=== PATIENT | male | born 1945 | race Caucasian/White ===

== ENCOUNTER 2019-12-11 03:04 | Emergency (ER) | payer MEDICARE, OTHER ==
[2019-12-11 03:17] VITALS: RESP 18; TEMP 97.3
--- NOTE | 2019-12-11 03:48 | ED ---
Extremity Problem HPI - General Chief complaint: Extremity Problem,Nontraumatic Stated complaint: Groin pain Time Seen by Provider: 12/11/19 03:19 Source: patient Mode of arrival: ambulatory Limitations: no limitations - History of Present Illness Initial comments: Reagan is a 74-year-old male with a history of prostate cancer as well as melanoma. He presents the ER today for evaluation of a right-sided anterior hip pain. Patient reports he noticed the pain a little over a week ago, pain is in the anterior groin radiating to the hip in the area of the ASIS. Patient reports the pain occurs without provocation is not any worse with ambulating or lifting. He has not noticed any bulging or signs of hernia. He hasn't had any dysuria or trouble urinating. Patient states that he does have a history of lumbar pain and has had surgeries in the past so he did see his chiropractor about this pain on with minimal improvement after an adjustment. He returned on Friday with chiropractor advised him that if the pain wasn't improving here further workup. Patient states that he was only able to get about 3 hours of sleep during the night on night and tonight couldn't sleep at all due to the pain which prompted his to bring in the ER for evaluation. Patient denies any recent fevers chills, nausea, vomiting, night sweats or weight loss. He denies any injuries or falls. Denies any radiation of the pain down the leg or signs of sciatica. Denies any change in bowel or bladder habits. - Related Data Home Medications Medication Instructions Recorded Confirmed SUMAtriptan SUCCINATE [Imitrex] 50 mg PO DAILY PRN 09/15/15 12/11/19 Naproxen Sodium [Aleve] 440 mg PO BID 11/29/15 12/11/19 Warfarin Sodium [Coumadin] 5 mg PO MOWEFR 11/29/15 12/11/19 Warfarin [Coumadin] 2.5 mg PO SUTUTHSA 11/29/15 12/11/19 Metoprolol Succinate (ER) [Toprol 25 mg PO BID 10/03/17 12/11/19 Xl] Atorvastatin [Lipitor] 20 mg PO HS 12/11/19 12/11/19 Previous Rx's Medication Instructions Recorded Methocarbamol [Robaxin-750] 750 mg PO TID #30 tablet 12/11/19 Allergies Allergy/AdvReac Type Severity Reaction Status Date / Time No Known Allergies Allergy Verified 12/11/19 03:11 Review of Systems ROS Statement: Those systems with pertinent positive or pertinent negative responses have been documented in the HPI. ROS Other: All systems not noted in ROS Statement are negative. Past Medical History Past Medical History: Atrial Fibrillation, Cancer, Hyperlipidemia, Osteoarthritis (OA), Prostate Disorder Additional Past Medical History / Comment(s): migraines, irregular heartrate, hx prostate cancer, hx melanoma, History of Any Multi-Drug Resistant Organisms: None Reported Past Surgical History: Adenoidectomy, Cardiac Valve Replacement, Prostate Surgery Additional Past Surgical History / Comment(s): aortic valve replacement, precancer lesions removed from hands and forehead, melanoma removed from arm, cardioversion Past Anesthesia/Blood Transfusion Reactions: No Reported Reaction Past Psychological History: No Psychological Hx Reported Smoking Status: Former smoker Past Alcohol Use History: Occasional Past Drug Use History: None Reported - Past Family History Father Family Medical History: Cancer Additional Family Medical History / Comment(s): throat Mother Additional Family Medical History / Comment(s): Mother of Heart Failure at 80 Brother(s) Family Medical History: Cancer Additional Family Medical History / Comment(s): stomach General Exam - General Exam Comments Initial Comments: Physical Exam GENERAL: Patient is well-developed and well-nourished. Patient is nontoxic and well- hydrated and is in no distress. HENT: Normocephalic, Atraumatic. EYES: PERRL, EOMI PULMONARY: Unlabored respirations CARDIOVASCULAR: RRR ABDOMEN: Soft and nontender with normal bowel sounds. No palpable hernia SKIN: Skin is clear with no lesions or rashes and otherwise unremarkable. : External genitalia, no testicular swelling palpable inguinal hernias No inguinal lymphadenopathy NEUROLOGIC: Patient is alert and oriented x3. Moving all extremities spontaneously MUSCULOSKELETAL: Normal extremities with adequate strength and full range of motion. No lower extremity swelling or edema. No calf tenderness. PSYCHIATRIC: Normal psychiatric evaluation. Limitations: no limitations Course Vital Signs 12/11/19 12/11/19 03:13 06:16 Temperature 97.3 F L Pulse Rate 70 60 Respiratory 18 18 Rate Blood Pressure 201/114 164/86 O2 Sat by Pulse 95 99 Oximetry Medical Decision Making - Medical Decision Making Patient was seen and evaluated history is obtained from patient given the patient's cancer history computed tomography scan will be obtained to evaluate for any possible metastatic disease Labs and x-ray were unremarkable Results were discussed patient at bedside who expresses relief at this time the comfortable with plan for discharge home, symptomatic management, follow-up with PCP. Patient has persistent pain he should follow with orthopedics. - Lab Data Result diagrams: 12/11/19 04:20 12/11/19 04:20 Lab Results 12/11/19 12/11/19 12/11/19 Range/Units 04:20 04:20 05:41 WBC 7.3 (3.8-10.6) k/uL RBC 4.79 (4.30-5.90) m/uL Hgb 14.1 (13.0-17.5) gm/dL Hct 43.7 (39.0-53.0) % MCV 91.3 (80.0-100.0) fL MCH 29.5 (25.0-35.0) pg MCHC 32.3 (31.0-37.0) g/dL RDW 14.0 (11.5-15.5) % Plt Count 153 (150-450) k/uL Neutrophils % 71 % Lymphocytes % 18 % Monocytes % 5 % Eosinophils % 3 % Basophils % 1 % Neutrophils # 5.2 (1.3-7.7) k/uL Lymphocytes # 1.3 (1.0-4.8) k/uL Monocytes # 0.4 (0-1.0) k/uL Eosinophils # 0.2 (0-0.7) k/uL Basophils # 0.0 (0-0.2) k/uL Sodium 139 (137-145) mmol/L Potassium 4.2 (3.5-5.1) mmol/L Chloride 108 H (98-107) mmol/L Carbon Dioxide 24 (22-30) mmol/L Anion Gap 7 mmol/L BUN 13 (9-20) mg/dL Creatinine 0.90 (0.66-1.25) mg/dL Est GFR (CKD-EPI)AfAm >90 (>60 ml/min/1.73 sqM) Est GFR (CKD-EPI)NonAf 85 (>60 ml/min/1.73 sqM) Glucose 111 H (74-99) mg/dL Calcium 9.4 (8.4-10.2) mg/dL Total Bilirubin 0.8 (0.2-1.3) mg/dL AST 22 (17-59) U/L ALT 20 (4-49) U/L Alkaline Phosphatase 43 (38-126) U/L Creatine Kinase 90 (55-170) U/L Total Protein 7.1 (6.3-8.2) g/dL Albumin 4.5 (3.5-5.0) g/dL Urine Color Yellow Urine Appearance Clear (Clear) Urine pH 6.5 (5.0-8.0) Ur Specific [place] 1.033 (1.001-1.035) Urine Protein Trace H (Negative) Urine Glucose (UA) Negative (Negative) Urine Ketones Negative (Negative) Urine Blood Negative (Negative) Urine Nitrite Negative (Negative) Urine Bilirubin Negative (Negative) Urine Urobilinogen <2.0 (<2.0) mg/dL Ur Leukocyte Esterase Negative (Negative) Disposition Clinical Impression: Musculoskeletal leg pain Disposition: HOME SELF-CARE Condition: Stable Instructions (If sedation given, give patient instructions): Leg Pain (ED) Prescriptions: Methocarbamol [Robaxin-750] 750 mg PO TID #30 tablet Is patient prescribed a controlled substance at d/c from ED?: No Referrals: Kim Luna III, MD [Primary Care Provider] - 1-2 days
[2019-12-11] MEDS ORDERED: SODIUM CHLORIDE 0.9% 1,000 ML IV STA (03:56)
[2019-12-11] MEDS ORDERED: MORPHINE SULFATE 4 MG/ML SYRINGE IV STA (03:56)
[2019-12-11] MEDS ORDERED: ONDANSETRON 4 MG/2 ML VIAL IVP STA (03:56)
[2019-12-11 04:33] LABS: Basophils % (A) 1 %; Eosinophils # (A) 0.2 k/uL (0-0.7); Eosinophils % (A) 3 %; HCT 43.7 % (39.0-53.0); HGB 14.1 gm/dL (13.0-17.5); Lymphocytes # (A) 1.3 k/uL (1.0-4.8); Lymphocytes % (A) 18 %; MCH 29.5 pg (25.0-35.0); MCHC 32.3 g/dL (31.0-37.0); MCV 91.3 fL (80.0-100.0); Mean Platelet Volume 7.7; Monocytes # (A) 0.4 k/uL (0-1.0); Monocytes % (A) 5 %; Neutrophils # (A) 5.2 k/uL (1.3-7.7); Neutrophils % (A) 71 %; Platelet Count 153 k/uL (150-450); RBC 4.79 m/uL (4.30-5.90); WBC 7.3 k/uL (3.8-10.6)
[2019-12-11 04:47] LABS: ALT 20 U/L (4-49); AST 22 U/L (17-59); African American GFR (CKD) >90 (>60 ml/min/1.73 sqM); Albumin 4.5 g/dL (3.5-5.0); Alkaline Phosphatase 43 U/L (38-126); Anion Gap 7 mmol/L; Blood Urea Nitrogen 13 mg/dL (9-20); Calcium 9.4 mg/dL (8.4-10.2); Carbon Dioxide 24 mmol/L (22-30); Chloride 108 mmol/L (98-107); Creatine Kinase 90 U/L (55-170); Glucose 111 mg/dL (74-99); Non-African American GFR(CKD) 85 (>60 ml/min/1.73 sqM); Potassium 4.2 mmol/L (3.5-5.1); Sodium 139 mmol/L (137-145); Total Bilirubin 0.8 mg/dL (0.2-1.3); Total Protein 7.1 g/dL (6.3-8.2)
[2019-12-11] MEDS ORDERED: MORPHINE SULFATE 4 MG/ML SYRINGE IVP STA (05:34)
--- NOTE | 2019-12-11 05:35 | CT ---
EXAMINATION TYPE: CT abdomen pelvis w con DATE OF EXAM: 12/11/2019 COMPARISON: None HISTORY: pain CT DLP: 1408.4 mGycm Automated exposure control for dose reduction was used. CONTRAST: Performed with IV Contrast, patient injected with 100 mL of Isovue 300. Multiple axial sections were obtained from the diaphragm to the floor the pelvis with intravenous con trast. The lung bases are clear. There is no pleural effusion. There is no pericardial effusion. The liver s pleen pancreas gallbladder appear normal. Bile ducts are not dilated. There is no adrenal mass. Kidne ys show satisfactory contrast opacification. There is no hydronephrosis. There is 2 cm cortical cyst anterior left kidney. Ureters are not dilated. There is no retroperitoneal adenopathy. Appendix is po sterior and appears normal. Bladder distends smoothly. There is no inguinal hernia. There is some diverticula in the mid sigmoid colon. I see no definite diverticulitis. There are surgi waleska clips in the pelvis bilaterally. There is no inguinal hernia. There is no evidence of a pelvic ma ss. There is no mesenteric edema. There is no ascites or free air. There is no evidence of bowel obstruct ion. There is multilevel lower lumbar laminectomy defect. Lumbar vertebra have normal alignment. Ther e is some disc space narrowing. There is no compression fracture. I see no focal bone destruction. Jack ny pelvis appears intact. IMPRESSION: Pelvic surgery. Lumbar spine surgery. Normal appendix. Sigmoid diverticulosis without sign of diverticulitis.
[2019-12-11] MEDS ORDERED: ACET/COD 300 MG/30 MG STARTER PACK 6 TAB BTL PO STA (05:40)
[2019-12-11 06:01] LABS: Appearance,Urine Clear (Clear); Bilirubin,Urine Negative (Negative); Blood,Urine Negative (Negative); Color,Urine Yellow; Glucose,Urine (UA) Negative (Negative); Ketones,Urine Negative (Negative); Leukocyte Esterase,Urine Negative (Negative); Nitrite,Urine Negative (Negative); PH, Urine 6.5 (5.0-8.0); Protein,Urine Trace (Negative); Specific Gravity,Urine 1.033 (1.001-1.035); Urobilinogen,Urine <2.0 mg/dL (<2.0)
[2019-12-11 06:18] VITALS: BP 164/86; PULSE 60
== END 2019-12-11 06:18 | disposition home or self-care (01) ==
LOC: EC 03:04
DX: M25.551 Pain in right hip (principal); E78.5 Hyperlipidemia, unspecified; I48.91 Unspecified atrial fibrillation; M19.90 Unspecified osteoarthritis, unspecified site; Z79.1 Long term (current) use of non-steroidal anti-inflammatories (NSAID); Z79.01 Long term (current) use of anticoagulants; Z79.899 Other long term (current) drug therapy; Z85.46 Personal history of malignant neoplasm of prostate; Z85.820 Personal history of malignant melanoma of skin; Z95.2 Presence of prosthetic heart valve; Z98.890 Other specified postprocedural states; Z87.891 Personal history of nicotine dependence
CPT/HCPCS: 36415; 80053; 82550; 85025; 81003; 74177; 99284; 96374; 96375; 96376; 96361 ×2; J2270; J2405; Q9967

== ENCOUNTER 2020-02-22 09:40 | Emergency (ER) | payer MEDICARE, OTHER ==
[2020-02-22 09:52] VITALS: BP 127/79; PULSE 70; RESP 18; TEMP 98
[2020-02-22 10:41] LABS: Basophils % (A) 1 %; Eosinophils # (A) 0.2 k/uL (0-0.7); Eosinophils % (A) 3 %; HCT 30.6 % (39.0-53.0); HGB 10.1 gm/dL (13.0-17.5); Lymphocytes % (A) 16 %; MCH 30.5 pg (25.0-35.0); MCHC 33.1 g/dL (31.0-37.0); MCV 92.1 fL (80.0-100.0); Mean Platelet Volume 7.5; Monocytes # (A) 0.4 k/uL (0-1.0); Monocytes % (A) 6 %; Neutrophils # (A) 4.5 k/uL (1.3-7.7); Neutrophils % (A) 73 %; Platelet Count 226 k/uL (150-450); RBC 3.32 m/uL (4.30-5.90); WBC 6.2 k/uL (3.8-10.6)
[2020-02-22 10:44] LABS: INR 1.3 (<1.2); Prothrombin Time 13.4 sec (9.0-12.0)
[2020-02-22 10:55] LABS: ALT 15 U/L (4-49); AST 23 U/L (17-59); African American GFR (CKD) >90 (>60 ml/min/1.73 sqM); Albumin 4.2 g/dL (3.5-5.0); Alkaline Phosphatase 42 U/L (38-126); Anion Gap 6 mmol/L; Blood Urea Nitrogen 16 mg/dL (9-20); Calcium 9.1 mg/dL (8.4-10.2); Carbon Dioxide 26 mmol/L (22-30); Chloride 106 mmol/L (98-107); Creatine Kinase 71 U/L (55-170); Glucose 97 mg/dL (74-99); Non-African American GFR(CKD) 85 (>60 ml/min/1.73 sqM); Potassium 4.7 mmol/L (3.5-5.1); Sodium 138 mmol/L (137-145); Total Bilirubin 1.4 mg/dL (0.2-1.3); Total Protein 6.6 g/dL (6.3-8.2)
--- NOTE | 2020-02-22 11:16 | US ---
EXAMINATION TYPE: US venous doppler duplex UE LT DATE OF EXAM: 02/22/2020 COMPARISON: NONE CLINICAL HISTORY: Left arm edema posttraumatic. SIDE PERFORMED: Left Patient fell. He has extensive bruising and swelling on his entire arm. Study technically difficult and limited due to extensive swelling Left Arm: Appears negative for DVT as seen. Unable to visualized basilic v and ulnar v's, this may be due to swelling. Grayscale, color doppler, spectral doppler imaging performed of the deep veins of the left upper extr emity. IMPRESSION: Suboptimal study as noted above, visualized portions show no acute superficial or deep ve nous thrombosis. Few portions not assessed.
--- NOTE | 2020-02-22 11:41 | XR ---
EXAMINATION TYPE: XR humerus LT, XR forearm LT DATE OF EXAM: 02/22/2020 CLINICAL HISTORY: pain TECHNIQUE: Frontal and lateral images of the left humerus are obtained. COMPARISON: None. FINDINGS: There is no acute fracture/dislocation evident. The joint spaces appear within normal limi ts. The overlying soft tissue appears unremarkable. IMPRESSION: There is no acute fracture or dislocation. ICD 10 NO FRACTURE, INITIAL EVALUATION EXAMINATION TYPE: XR humerus LT, XR forearm LT DATE OF EXAM: 02/22/2020 CLINICAL HISTORY: pain TECHNIQUE: Frontal and lateral images of the left forearm are obtained. COMPARISON: None. FINDINGS: There is no acute fracture/dislocation evident. The joint spaces appear within normal limi ts. Soft tissue swelling noted.
--- NOTE | 2020-02-22 13:01 | ED ---
Upper Extremity HPI - General Chief Complaint: Extremity Injury, Upper Stated Complaint: fall/poss broken arm Time Seen by Provider: 02/22/20 09:54 Source: patient, family, RN/MD, RN notes reviewed Mode of arrival: ambulatory Limitations: no limitations - History of Present Illness Initial Comments: This is a 74-year-old male with a history of A. fib and on Coumadin who fell about a week ago when he has left arm. He's had swelling to this area and did have a wound to the dorsal aspect of the forearm. He states the swelling is going down but he was following up in his doctor's office today where he was noted have some complaints of some numbness to his left thumb but no complaints of fevers chills nausea vomiting sweats or other symptoms. Concern was for infection/cellulitis of the forearm and the swelling and ecchymosis to left upper extremity. Patient himself states that the swelling is much improved he does not have any pain over the area daily care for the wound at home and seems be healing up. He has no other complaints or modifying factors at reported this time MD Complaint: Injury to:: left, arm, forearm - Related Data Home Medications Medication Instructions Recorded Confirmed SUMAtriptan succinate [Imitrex] 50 mg PO DAILY PRN 09/15/15 02/22/20 Naproxen Sodium [Aleve] 440 mg PO BID 11/29/15 02/22/20 Metoprolol Succinate (ER) [Toprol 25 mg PO DAILY 10/03/17 02/22/20 Xl] Atorvastatin [Lipitor] 20 mg PO DAILY 12/11/19 02/22/20 Cephalexin [Keflex] 500 mg PO Q8HR 02/22/20 02/22/20 Warfarin Sodium 5 mg PO MOFR 02/22/20 02/22/20 Warfarin [Coumadin] 2.5 mg PO SUTUWETHSA 02/22/20 02/22/20 Allergies Allergy/AdvReac Type Severity Reaction Status Date / Time No Known Allergies Allergy Verified 02/22/20 12:44 Review of Systems ROS Statement: Those systems with pertinent positive or pertinent negative responses have been documented in the HPI. ROS Other: All systems not noted in ROS Statement are negative. Past Medical History Past Medical History: Atrial Fibrillation, Cancer, Hyperlipidemia, Osteoa rthritis (OA), Prostate Disorder Additional Past Medical History / Comment(s): migraines, hx prostate cancer, hx melanoma, History of Any Multi-Drug Resistant Organisms: None Reported Past Surgical History: Adenoidectomy, Back Surgery, Cardiac Valve Replacement, Prostate Surgery Additional Past Surgical History / Comment(s): aortic valve replacement, precancer lesions removed from hands and forehead, melanoma removed from arm, cardioversion Past Anesthesia/Blood Transfusion Reactions: No Reported Reaction Past Psychological History: No Psychological Hx Reported Smoking Status: Never smoker Past Alcohol Use History: Occasional Past Drug Use History: None Reported - Past Family History Father Family Medical History: Cancer Additional Family Medical History / Comment(s): throat Mother Additional Family Medical History / Comment(s): Mother of Heart Failure at 80 Brother(s) Family Medical History: Cancer Additional Family Medical History / Comment(s): stomach General Exam - General Exam Comments Initial Comments: This is a well-developed well-nourished awake alert oriented times 3 male Limitations: no limitations General appearance: alert, in no apparent distress Head exam: Present: atraumatic, normocephalic, normal inspection Eye exam: Present: normal appearance, PERRL, EOMI. Absent: scleral icterus, conjunctival injection, periorbital swelling ENT exam: Present: normal exam, mucous membranes moist Neck exam: Present: normal inspection. Absent: tenderness, meningismus, lymphadenopathy Respiratory exam: Present: normal lung sounds bilaterally. Absent: respiratory distress, wheezes, rales, rhonchi, stridor Cardiovascular Exam: Present: regular rate, normal rhythm, normal heart sounds. Absent: systolic murmur, diastolic murmur, rubs, gallop, clicks GI/Abdominal exam: Present: soft, normal bowel sounds. Absent: distended, tenderness, guarding, rebound, rigid Extremities exam: Present: full ROM, normal capillary refill, other (Examination left upper extremity demonstrates ecchymosis and edema seen to the arm and forearm. There is a healing wound over the dorsal mid aspect of the forearm. No drainage or leakage no erythema no increased localized temperature. The patient initially here. He has some vasoconstriction to the left hand however repeat evaluation he had good capillary refill with palpable radial and ulnar pulses. No overt tenderness palpation except for one very small aspect of the proximal left forearm just distal to the lateral epicondyles.). Absent: tenderness, pedal edema, joint swelling, calf tenderness Back exam: Present: normal inspection Neurological exam: Present: alert, oriented X3, CN II-XII intact Psychiatric exam: Present: normal affect, normal mood Skin exam: Present: warm, dry, intact, normal color. Absent: rash Course Vital Signs 02/22/20 09:46 Temperature 98 F Pulse Rate 70 Respiratory 18 Rate Blood Pressure 127/79 O2 Sat by Pulse 99 Oximetry Medical Decision Making - Medical Decision Making I did discuss findings with the patient has as well as with Ryan Blakely from [facility]. The patient will be discharged and follow-up tomorrow. He will return and return parameters were discussed. Patient will continue with elevation of his left forearm and the wound care they have been diligently performing. - Lab Data Result diagrams: 02/22/20 10:20 02/22/20 10:20 Lab Results 02/22/20 02/22/20 02/22/20 Range/Units 10:20 10:20 10:20 WBC 6.2 (3.8-10.6) k/uL RBC 3.32 L (4.30-5.90) m/uL Hgb 10.1 L (13.0-17.5) gm/dL Hct 30.6 L (39.0-53.0) % MCV 92.1 (80.0-100.0) fL MCH 30.5 (25.0-35.0) pg MCHC 33.1 (31.0-37.0) g/dL RDW 15.0 (11.5-15.5) % Plt Count 226 (150-450) k/uL Neutrophils % 73 % Lymphocytes % 16 % Monocytes % 6 % Eosinophils % 3 % Basophils % 1 % Neutrophils # 4.5 (1.3-7.7) k/uL Lymphocytes # 1.0 (1.0-4.8) k/uL Monocytes # 0.4 (0-1.0) k/uL Eosinophils # 0.2 (0-0.7) k/uL Basophils # 0.0 (0-0.2) k/uL PT 13.4 H (9.0-12.0) sec INR 1.3 H (<1.2) Sodium 138 (137-145) mmol/L Potassium 4.7 (3.5-5.1) mmol/L Chloride 106 (98-107) mmol/L Carbon Dioxide 26 (22-30) mmol/L Anion Gap 6 mmol/L BUN 16 (9-20) mg/dL Creatinine 0.90 (0.66-1.25) mg/dL Est GFR (CKD-EPI)AfAm >90 (>60 ml/min/1.73 sqM) Est GFR (CKD-EPI)NonAf 85 (>60 ml/min/1.73 sqM) Glucose 97 (74-99) mg/dL Calcium 9.1 (8.4-10.2) mg/dL Magnesium 2.0 (1.6-2.3) mg/dL Total Bilirubin 1.4 H (0.2-1.3) mg/dL AST 23 (17-59) U/L ALT 15 (4-49) U/L Alkaline Phosphatase 42 (38-126) U/L Creatine Kinase 71 (55-170) U/L Troponin I (0.000-0.034) ng/mL Total Protein 6.6 (6.3-8.2) g/dL Albumin 4.2 (3.5-5.0) g/dL 02/22/20 Range/Units 10:20 WBC (3.8-10.6) k/uL RBC (4.30-5.90) m/uL Hgb (13.0-17.5) gm/dL Hct (39.0-53.0) % MCV (80.0-100.0) fL MCH (25.0-35.0) pg MCHC (31.0-37.0) g/dL RDW (11.5-15.5) % Plt Count (150-450) k/uL Neutrophils % % Lymphocytes % % Monocytes % % Eosinophils % % Basophils % % Neutrophils # (1.3-7.7) k/uL Lymphocytes # (1.0-4.8) k/uL Monocytes # (0-1.0) k/uL Eosinophils # (0-0.7) k/uL Basophils # (0-0.2) k/uL PT (9.0-12.0) sec INR (<1.2) Sodium (137-145) mmol/L Potassium (3.5-5.1) mmol/L Chloride (98-107) mmol/L Carbon Dioxide (22-30) mmol/L Anion Gap mmol/L BUN (9-20) mg/dL Creatinine (0.66-1.25) mg/dL Est GFR (CKD-EPI)AfAm (>60 ml/min/1.73 sqM) Est GFR (CKD-EPI)NonAf (>60 ml/min/1.73 sqM) Glucose (74-99) mg/dL Calcium (8.4-10.2) mg/dL Magnesium (1.6-2.3) mg/dL Total Bilirubin (0.2-1.3) mg/dL AST (17-59) U/L ALT (4-49) U/L Alkaline Phosphatase (38-126) U/L Creatine Kinase (55-170) U/L Troponin I <0.012 (0.000-0.034) ng/mL Total Protein (6.3-8.2) g/dL Albumin (3.5-5.0) g/dL - EKG Data -: EKG Interpreted by Me EKG shows normal: sinus rhythm (Sinus rhythm a 65 [place] interval 178 QRS duration 86 QT since QTC 36/4 of 1 also left exodeviation noted.) - Radiology Data Radiology results: report reviewed (I did review the imaging center report no evidence of fracture no evidence of DVT.), image reviewed Disposition Clinical Impression: Contusion of left upper extremity, Abrasion of left forearm, Edema of left upper extremity Disposition: HOME SELF-CARE Condition: Good Instructions (If sedation given, give patient instructions): Abrasion (ED), Contusion in Adults (ED) Additional Instructions: Continues to elevate her left forearm as directed. Follow up with Ryan Blakely at [facility] tomorrow Is patient prescribed a controlled substance at d/c from ED?: No Referrals: Kim Luna III, MD [Primary Care Provider] - 1-2 days Ryan Blakely, [facility] [[facility]] - 1-2 days
== END 2020-02-22 13:25 | disposition home or self-care (01) ==
LOC: EC 09:40
DX: S40.022A Contusion of left upper arm, initial encounter (principal); S50.812A Abrasion of left forearm, initial encounter; G43.909 Migraine, unspecified, not intractable, without status migrainosus; M19.90 Unspecified osteoarthritis, unspecified site; I48.91 Unspecified atrial fibrillation; E78.5 Hyperlipidemia, unspecified; Z79.01 Long term (current) use of anticoagulants; Z79.899 Other long term (current) drug therapy; Z79.1 Long term (current) use of non-steroidal anti-inflammatories (NSAID); Z85.46 Personal history of malignant neoplasm of prostate; Z85.820 Personal history of malignant melanoma of skin; W01.0XXA Fall on same level from slipping, tripping and stumbling without subsequent striking against object, initial encounter; Y92.009 Unspecified place in unspecified non-institutional (private) residence as the place of occurrence of the external cause
CPT/HCPCS: 36415; 80053; 82550; 83735; 84484; 85025; 85610; 93005; 99284

== ENCOUNTER 2020-09-15 04:13 | Emergency (ER) | payer MEDICARE, OTHER ==
[2020-09-15 04:18] VITALS: TEMP 97.7
[2020-09-15] MEDS ORDERED: METOPROLOL TARTRATE 5 MG/5 ML VIAL IVP STA (04:37)
[2020-09-15] MEDS ORDERED: DILTIAZEM DRIP BOLUS FROM BAG 1 MG SOLN IV STA (04:37)
[2020-09-15] MEDS ORDERED: SODIUM CHLORIDE 0.9% 1,000 ML IV STA (04:37)
--- NOTE | 2020-09-15 04:37 | ED ---
Arrhythmia/Palpitations HPI - General Chief Complaint: Arrhythmia/Palpitations Stated Complaint: Heart palpitations Time Seen by Provider: 09/15/20 04:29 Source: patient Mode of arrival: ambulatory Limitations: physical limitation - Related Data Home Medications Medication Instructions Recorded Confirmed SUMAtriptan succinate [Imitrex] 50 mg PO DAILY PRN 09/15/15 02/22/20 Naproxen Sodium [Aleve] 440 mg PO BID 11/29/15 02/22/20 Metoprolol Succinate (ER) [Toprol 25 mg PO DAILY 10/03/17 02/22/20 Xl] Atorvastatin [Lipitor] 20 mg PO DAILY 12/11/19 02/22/20 Cephalexin [Keflex] 500 mg PO Q8HR 02/22/20 02/22/20 Warfarin Sodium 5 mg PO MOFR 02/22/20 02/22/20 Warfarin [Coumadin] 2.5 mg PO SUTUWETHSA 02/22/20 02/22/20 Allergies Allergy/AdvReac Type Severity Reaction Status Date / Time No Known Allergies Allergy Verified 09/15/20 04:18 Review of Systems ROS Statement: Those systems with pertinent positive or pertinent negative responses have been documented in the HPI. ROS Other: All systems not noted in ROS Statement are negative. Past Medical History Past Medical History: Atrial Fibrillation, Cancer, Hyperlipidemia, Osteoarthritis (OA), Prostate Disorder Additional Past Medical History / Comment(s): migraines, hx prostate cancer, hx melanoma, History of Any Multi-Drug Resistant Organisms: None Reported Past Surgical History: Adenoidectomy, Back Surgery, Cardiac Valve Replacement, Prostate Surgery Additional Past Surgical History / Comment(s): aortic valve replacement, precancer lesions removed from hands and forehead, melanoma removed from arm, cardioversion Past Anesthesia/Blood Transfusion Reactions: No Reported Reaction Past Psychological History: No Psychological Hx Reported Smoking Status: Never smoker Past Alcohol Use History: Occasional Past Drug Use History: None Reported - Past Family History Father Family Medical History: Cancer Additional Family Medical History / Comment(s): throat Mother Additional Family Medical History / Comment(s): Mother of Heart Failure at 80 Brother(s) Family Medical History: Cancer Additional Family Medical History / Comment(s): stomach General Exam Limitations: physical limitation Course Vital Signs 09/15/20 09/15/20 09/15/20 04:14 04:52 05:07 Temperature 97.7 F Pulse Rate 136 H 134 H 89 Respiratory 18 18 16 Rate Blood Pressure 135/82 138/110 111/78 O2 Sat by Pulse 96 95 93 L Oximetry 09/15/20 05:37 Temperature Pulse Rate 69 Respiratory 16 Rate Blood Pressure 118/73 O2 Sat by Pulse 95 Oximetry EKG Findings - EKG Comments: EKG Findings:: EKG is sinus tachycardia 134 HI 134 QRS 112 QTC 433 Medical Decision Making - Lab Data Result diagrams: 09/15/20 04:48 09/15/20 04:48 Lab Results 09/15/20 09/15/20 09/15/20 Range/Units 04:48 04:48 04:48 WBC 7.2 (3.8-10.6) k/uL RBC 4.86 (4.30-5.90) m/uL Hgb 15.5 (13.0-17.5) gm/dL Hct 45.1 (39.0-53.0) % MCV 92.9 (80.0-100.0) fL MCH 32.0 (25.0-35.0) pg MCHC 34.5 (31.0-37.0) g/dL RDW 13.5 (11.5-15.5) % Plt Count 148 L (150-450) k/uL MPV 7.0 Neutrophils % 63 % Lymphocytes % 20 % Monocytes % 6 % Eosinophils % 8 % Basophils % 1 % Neutrophils # 4.6 (1.3-7.7) k/uL Lymphocytes # 1.5 (1.0-4.8) k/uL Monocytes # 0.5 (0-1.0) k/uL Eosinophils # 0.6 (0-0.7) k/uL Basophils # 0.1 (0-0.2) k/uL PT 18.5 H (9.0-12.0) sec INR 1.9 H (<1.2) APTT 34.1 H (22.0-30.0) sec Sodium 140 (137-145) mmol/L Potassium 4.5 (3.5-5.1) mmol/L Chloride 109 H (98-107) mmol/L Carbon Dioxide 22 (22-30) mmol/L Anion Gap 9 mmol/L BUN 25 H (9-20) mg/dL Creatinine 0.91 (0.66-1.25) mg/dL Est GFR (CKD-EPI)AfAm >90 (>60 ml/min/1.73 sqM) Est GFR (CKD-EPI)NonAf 83 (>60 ml/min/1.73 sqM) Glucose 105 H (74-99) mg/dL Calcium 8.7 (8.4-10.2) mg/dL Phosphorus 2.8 (2.5-4.5) mg/dL Magnesium 2.0 (1.6-2.3) mg/dL Total Bilirubin 0.4 (0.2-1.3) mg/dL AST 24 (17-59) U/L ALT 22 (4-49) U/L Alkaline Phosphatase 50 (38-126) U/L Creatine Kinase 126 (55-170) U/L Troponin I (0.000-0.034) ng/mL NT-Pro-B Natriuret Pep pg/mL Total Protein 6.9 (6.3-8.2) g/dL Albumin 4.4 (3.5-5.0) g/dL TSH 1.560 (0.465-4.680) mIU/L 09/15/20 09/15/20 Range/Units 04:48 04:48 WBC (3.8-10.6) k/uL RBC (4.30-5.90) m/uL Hgb (13.0-17.5) gm/dL Hct (39.0-53.0) % MCV (80.0-100.0) fL MCH (25.0-35.0) pg MCHC (31.0-37.0) g/dL RDW (11.5-15.5) % Plt Count (150-450) k/uL MPV Neutrophils % % Lymphocytes % % Monocytes % % Eosinophils % % Basophils % % Neutrophils # (1.3-7.7) k/uL Lymphocytes # (1.0-4.8) k/uL Monocytes # (0-1.0) k/uL Eosinophils # (0-0.7) k/uL Basophils # (0-0.2) k/uL PT (9.0-12.0) sec INR (<1.2) APTT (22.0-30.0) sec Sodium (137-145) mmol/L Potassium (3.5-5.1) mmol/L Chloride (98-107) mmol/L Carbon Dioxide (22-30) mmol/L Anion Gap mmol/L BUN (9-20) mg/dL Creatinine (0.66-1.25) mg/dL Est GFR (CKD-EPI)AfAm (>60 ml/min/1.73 sqM) Est GFR (CKD-EPI)NonAf (>60 ml/min/1.73 sqM) Glucose (74-99) mg/dL Calcium (8.4-10.2) mg/dL Phosphorus (2.5-4.5) mg/dL Magnesium (1.6-2.3) mg/dL Total Bilirubin (0.2-1.3) mg/dL AST (17-59) U/L ALT (4-49) U/L Alkaline Phosphatase (38-126) U/L Creatine Kinase (55-170) U/L Troponin I <0.012 (0.000-0.034) ng/mL NT-Pro-B Natriuret Pep 136 pg/mL Total Protein (6.3-8.2) g/dL Albumin (3.5-5.0) g/dL TSH (0.465-4.680) mIU/L Disposition Clinical Impression: Atrial fibrillation with rapid ventricular response, Atrial flutter Disposition: HOME SELF-CARE Condition: Fair Instructions (If sedation given, give patient instructions): A-fib (Atrial Fibrillation) (ED) Is patient prescribed a controlled substance at d/c from ED?: No Referrals: Kushal Quinones MD [STAFF PHYSICIAN] - 1-2 days
[2020-09-15] MEDS ORDERED: DILTIAZEM 125 MG in SODIUM CHLORIDE 0.9% 100 ML IV SCH (05:00)
[2020-09-15 05:02] LABS: Basophils # (A) 0.1 k/uL (0-0.2); Basophils % (A) 1 %; Eosinophils # (A) 0.6 k/uL (0-0.7); Eosinophils % (A) 8 %; HCT 45.1 % (39.0-53.0); HGB 15.5 gm/dL (13.0-17.5); Lymphocytes # (A) 1.5 k/uL (1.0-4.8); Lymphocytes % (A) 20 %; MCHC 34.5 g/dL (31.0-37.0); MCV 92.9 fL (80.0-100.0); Monocytes # (A) 0.5 k/uL (0-1.0); Monocytes % (A) 6 %; Neutrophils # (A) 4.6 k/uL (1.3-7.7); Neutrophils % (A) 63 %; Platelet Count 148 k/uL (150-450); RBC 4.86 m/uL (4.30-5.90); RDW 13.5 % (11.5-15.5); WBC 7.2 k/uL (3.8-10.6)
[2020-09-15 05:09] VITALS: RESP 16
[2020-09-15 05:13] LABS: ALT 22 U/L (4-49); AST 24 U/L (17-59); African American GFR (CKD) >90 (>60 ml/min/1.73 sqM); Albumin 4.4 g/dL (3.5-5.0); Alkaline Phosphatase 50 U/L (38-126); Anion Gap 9 mmol/L; Blood Urea Nitrogen 25 mg/dL (9-20); Calcium 8.7 mg/dL (8.4-10.2); Carbon Dioxide 22 mmol/L (22-30); Chloride 109 mmol/L (98-107); Creatine Kinase 126 U/L (55-170); Glucose 105 mg/dL (74-99); INR 1.9 (<1.2); Non-African American GFR(CKD) 83 (>60 ml/min/1.73 sqM); Phosphorus 2.8 mg/dL (2.5-4.5); Potassium 4.5 mmol/L (3.5-5.1); Sodium 140 mmol/L (137-145); Total Bilirubin 0.4 mg/dL (0.2-1.3); Total Protein 6.9 g/dL (6.3-8.2)
[2020-09-15 05:14] LABS: Partial Thromboplastin Time 34.1 sec (22.0-30.0); Prothrombin Time 18.5 sec (9.0-12.0)
[2020-09-15 06:40] VITALS: BP 139/89; PULSE 75
== END 2020-09-15 06:40 | disposition home or self-care (01) ==
LOC: EC 04:13
DX: I48.91 Unspecified atrial fibrillation (principal); I48.92 Unspecified atrial flutter; E78.5 Hyperlipidemia, unspecified
CPT/HCPCS: 36415; 80053; 82550; 83735; 83880; 84100; 84443; 84484; 85025; 85610; 85730; 93005; 96361; 96374; 99285

== ENCOUNTER 2020-09-28 07:26 | Day surgery (SDC) | payer MEDICARE, OTHER ==
[2020-09-25 14:00] VITALS: BMI 32.1
[~2020-09-28 07:26] MED LIST: LACTATED RINGERS 1,000 ML IV SCH; SODIUM CHLORIDE 0.9% 1,000 ML IV SCH
[2020-09-28] MEDS ORDERED: SODIUM CHLORIDE 0.9% 1,000 ML IV ONE ×2 (07:41→09:36)
[2020-09-28 08:47] VITALS: RESP 16; TEMP 98
[2020-09-28 08:55] LABS: INR 1.5 (<1.2); Prothrombin Time 14.7 sec (9.0-12.0)
[2020-09-28] MEDS ORDERED: PROPOFOL 10 MG/ML 20 ML VIAL IV ONE (08:55)
[2020-09-28] MEDS ORDERED: LIDOCAINE 1% INJ 10MG/ML (20 ML MDV) ONE (08:55)
[2020-09-28] MEDS ORDERED: SODIUM CHLORIDE 0.9% 500 ML 500 ML IV ONE ×2 (09:20)
[2020-09-28] MEDS ORDERED: METOPROLOL SUCCINATE (ER) 25 MG TAB.ER.24H PO STA (10:46)
[2020-09-28 11:11] VITALS: BP 142/65; PULSE 121
--- NOTE | 2020-11-02 21:54 | PN ---
PROGRESS NOTE Date of "procedure": 09/28/2020 My privileges have been suspended for not doing a procedure note on this patient, who did not have any procedure. The patient was supposed to have a CAROL cardioversion. That was canceled, as his INR was subtherapeutic at 1.5. MMNEETUL / CALEN: [id number] /
== END 2020-09-28 10:56 | disposition home or self-care (01) ==
LOC: CATHCVL 07:26
PROVIDERS: ATTEND Internal Medicine Cardiovascular Disease
DX: I48.4 Atypical atrial flutter (principal); E78.2 Mixed hyperlipidemia; Z53.8 Procedure and treatment not carried out for other reasons; Z87.891 Personal history of nicotine dependence; I48.0 Paroxysmal atrial fibrillation; Z95.2 Presence of prosthetic heart valve; I10 Essential (primary) hypertension; M19.90 Unspecified osteoarthritis, unspecified site; K21.9 Gastro-esophageal reflux disease without esophagitis; Z85.46 Personal history of malignant neoplasm of prostate; Z79.01 Long term (current) use of anticoagulants; Z79.1 Long term (current) use of non-steroidal anti-inflammatories (NSAID); Z79.82 Long term (current) use of aspirin
CPT/HCPCS: 85610; J2001; J2704; 92960

== ENCOUNTER 2021-01-15 07:16 | Day surgery (SDC) | payer MEDICARE, OTHER ==
[2021-01-11 11:09] VITALS: BMI 33.2
[~2021-01-15 07:16] MED LIST changes: -LACTATED RINGERS 1,000 ML IV SCH
[2021-01-15] MEDS ORDERED: LIDOCAINE 1% INJ 10MG/ML (20 ML MDV) ONE (07:47)
[2021-01-15] MEDS ORDERED: PROPOFOL 10 MG/ML 20 ML VIAL IV ONE (07:47)
[2021-01-15 07:57] VITALS: TEMP 97.9
[2021-01-15 08:02] LABS: Prothrombin Time 29.4 sec (9.0-12.0)
[2021-01-15] MEDS ORDERED: IV FLUID CONTINUATION 500 ML IV ONE (08:48)
[2021-01-15 09:05] LABS: Calcium 9.3 mg/dL (8.4-10.2); Potassium 5.5 mmol/L (3.5-5.1)
[2021-01-15] MEDS ORDERED: BENZOCAINE SPRAY 1 CAN MUCOUS MEM ONE (09:55)
[2021-01-15 10:23] VITALS: RESP 16
[2021-01-15 12:25] VITALS: BP 122/64; PULSE 76
--- NOTE | 2021-01-15 23:10 | ECHOT ---
TRANSESOPHAGEAL ECHOCARDIOGRAM INDICATION: To rule out intracardiac thrombus prior to cardioversion in a patient with persistent atrial fibrillation. PROCEDURE NOTE: After obtaining informed consent, transesophageal echocardiogram was performed in left lateral position using an Omni plane probe. Local and IV sedation were obtained using Xylocaine and propofol by the valve pipe irrigator. 2D color Doppler and spectral analysis and contrast study was performed. FINDINGS: 1. There is no intracardiac thrombus within the left atrial appendage, left atrium,right atrium, right ventricle or left ventricle. 2. Left ventricle has normal size and systolic function. 3. Left atrium appears mildly enlarged. 4. Right atrium and right ventricle exam within normal limits. 5. Interatrial septum: There is no evidence of [id number] shunt by color-flow Doppler or [id number] shunt by agitated saline contrast study. 6. Mitral valve shows mild central mitral regurgitation. 7. Tricuspid valve appears anatomically normal. 8. Aortic valve is a bioprosthetic valve. There is no evidence of aortic stenosis or regurgitation. Aorta shows mild atherosclerotic changes. CONCLUSIONS: 1. No intracardiac thrombus. 2. Normally functioning bioprosthetic valve in aortic position. PLAN: Patient will proceed with cardioversion. MMODL / IJN: [id number] /
--- NOTE | 2021-01-15 23:14 | CE ---
CARDIAC ELECTROPHYSIOLOGY REPORT CARDIOVERSION: INDICATION: Persistent atrial fibrillation. PROCEDURE NOTE: After obtaining informed consent, electrical cardioversion was performed using 300 joules of synchronized DC current. The patient was anticoagulated with Coumadin and the INR was 3.0. Absence of intracardiac thrombus was confirmed by transesophageal echo. The patient converted to sinus rhythm following a single shock. LOWELL / OLGA: [id number] /
== END 2021-01-15 11:55 | disposition home or self-care (01) ==
LOC: CATHCVL 07:16
PROVIDERS: ATTEND Internal Medicine Cardiovascular Disease
DX: I48.19 Other persistent atrial fibrillation (principal); I48.4 Atypical atrial flutter; I08.0 Rheumatic disorders of both mitral and aortic valves; I70.0 Atherosclerosis of aorta; I10 Essential (primary) hypertension; E78.2 Mixed hyperlipidemia; Z87.891 Personal history of nicotine dependence; Z95.2 Presence of prosthetic heart valve; Z79.01 Long term (current) use of anticoagulants; Z79.82 Long term (current) use of aspirin; Z79.899 Other long term (current) drug therapy
CPT/HCPCS: 93312; 93320; 93005; 93325; 92960; 80048; 85610; J2001; J2704

== ENCOUNTER 2021-06-20 07:20 | Emergency (ER) | payer MEDICARE, OTHER ==
[2021-06-20] MEDS ORDERED: SODIUM CHLORIDE 0.9% 500 ML 500 ML IV STA (07:38)
[2021-06-20] MEDS ORDERED: SODIUM CHLORIDE 0.9% 1,000 ML IV STA (07:38)
[2021-06-20 08:13] LABS: Basophils % (A) 0 %; Eosinophils % (A) 0 %; HCT 45.4 % (39.0-53.0); HGB 15.2 gm/dL (13.0-17.5); Lymphocytes # (A) 0.6 k/uL (1.0-4.8); Lymphocytes % (A) 12 %; MCH 30.8 pg (25.0-35.0); MCHC 33.6 g/dL (31.0-37.0); MCV 91.9 fL (80.0-100.0); Mean Platelet Volume 9.7; Monocytes # (A) 0.2 k/uL (0-1.0); Monocytes % (A) 5 %; Neutrophils # (A) 4.1 k/uL (1.3-7.7); Neutrophils % (A) 80 %; RBC 4.94 m/uL (4.30-5.90); RDW 13.9 % (11.5-15.5); WBC 5.1 k/uL (3.8-10.6)
[2021-06-20 08:17] VITALS: TEMP 99.1
[2021-06-20 08:28] LABS: Albumin 3.9 g/dL (3.5-5.0); Calcium 8.4 mg/dL (8.4-10.2); Total Protein 6.8 g/dL (6.3-8.2)
[2021-06-20 08:36] LABS: Magnesium 1.8 mg/dL (1.6-2.3); Potassium 4.7 mmol/L (3.5-5.1)
[2021-06-20 08:40] LABS: Partial Thromboplastin Time 42.3 sec (22.0-30.0)
--- NOTE | 2021-06-20 08:54 | XR ---
EXAMINATION TYPE: XR chest 2V DATE OF EXAM: 06/20/2021 COMPARISON: Chest x-ray 09/15/2015 HISTORY: Syncope, weakness TECHNIQUE: Frontal and lateral views of the chest are obtained. FINDINGS: There is no focal air space opacity, pleural effusion, or pneumothorax seen. The cardiac silhouette size is within normal limits. Patient is post median sternotomy and cardiac valve replacem ent. There are overlying leads, patient is rotated, overlying artifacts noted. The osseous structur es are intact. IMPRESSION: No acute cardiopulmonary process.
[2021-06-20 09:13] LABS: Platelet Count 94 k/uL (150-450)
[2021-06-20 11:06] LABS: Appearance,Urine Clear (Clear); Bilirubin,Urine Negative (Negative); Blood,Urine Trace (Negative); Color,Urine Yellow; Glucose,Urine (UA) Negative (Negative); Ketones,Urine 2+ (Negative); Leukocyte Esterase,Urine Negative (Negative); Mucus,Urine Occasional /hpf; Nitrite,Urine Negative (Negative); Protein,Urine 1+ (Negative); RBC,Urine 2 /hpf (0-5); Specific Gravity,Urine 1.016 (1.001-1.035); Squamous Epithelial Cell,Urine <1 /hpf (0-4); Urobilinogen,Urine <2.0 mg/dL (<2.0); WBC,Urine 2 /hpf (0-5)
--- NOTE | 2021-06-20 11:26 | ED ---
General Adult HPI - General Chief complaint: Syncope Stated complaint: near syncope/covid+ Time Seen by Provider: 06/20/21 07:25 Source: patient, EMS, RN notes reviewed Mode of arrival: EMS Limitations: no limitations - History of Present Illness Initial comments: 76-year-old male present emergency from chief complaint of near syncope. Patient states that she is in her bathroom states started getting very lightheaded and sat down started getting tunnel vision and laid himself down into the tub. Patient states that he has been sick last 10-11 days with Covid 19. Patient states that no chest pain he's had a slight cough no increasing shortness of breath. Patient denies strike his head no full loss conscious. - Related Data Home Medications Medication Instructions Recorded Confirmed SUMAtriptan succinate [Imitrex] 50 mg PO DAILY PRN 09/15/15 06/20/21 Naproxen Sodium [Aleve] 440 mg PO BID 11/29/15 06/20/21 Atorvastatin [Lipitor] 20 mg PO DAILY 12/11/19 06/20/21 Warfarin Sodium 5 mg PO MOWEFRSA@2100 02/22/20 06/20/21 Warfarin [Coumadin] 2.5 mg PO SUTUTH@2100 01/11/21 06/20/21 Cholecalciferol [Vitamin D3 (125 125 mcg PO DAILY 06/20/21 06/20/21 Mcg = 5000 Iu)] Previous Rx's Medication Instructions Recorded Metoprolol Succinate (ER) [Toprol 25 mg PO DAILY #0 01/15/21 XL] Allergies Allergy/AdvReac Type Severity Reaction Status Date / Time No Known Allergies Allergy Verified 06/20/21 08:45 Review of Systems ROS Statement: Those systems with pertinent positive or pertinent negative responses have been documented in the HPI. ROS Other: All systems not noted in ROS Statement are negative. Past Medical History Past Medical History: Atrial Fibrillation, Cancer, Hyperlipidemia, Osteoarthritis (OA), Prostate Disorder Additional Past Medical History / Comment(s): migraines, hx prostate cancer, hx melanoma History of Any Multi-Drug Resistant Organisms: None Reported Past Surgical History: Adenoidectomy, Back Surgery, Cardiac Valve Replacement, Prostate Surgery Additional Past Surgical History / Comment(s): aortic valve replacement, precancer lesions removed from hands and forehead, melanoma removed from arm, cardioversion Past Anesthesia/Blood Transfusion Reactions: No Reported Reaction Past Psychological History: No Psychological Hx Reported Smoking Status: Former smoker Past Alcohol Use History: None Reported Past Drug Use History: None Reported - Past Family History Father Family Medical History: Cancer Additional Family Medical History / Comment(s): throat Mother Family Medical History: Congestive Heart Failure (CHF) Additional Family Medical History / Comment(s): Mother of Heart Failure at 80 Brother(s) Family Medical History: Cancer Additional Family Medical History / Comment(s): stomach General Exam Limitations: no limitations General appearance: alert, in no apparent distress Head exam: Present: atraumatic, normocephalic, normal inspection Eye exam: Present: normal appearance, PERRL, EOMI. Absent: scleral icterus, conjunctival injection, periorbital swelling Respiratory exam: Present: normal lung sounds bilaterally. Absent: respiratory distress, wheezes, rales, rhonchi, stridor Cardiovascular Exam: Present: regular rate, normal rhythm, normal heart sounds. Absent: systolic murmur, diastolic murmur, rubs, gallop, clicks GI/Abdominal exam: Present: soft, normal bowel sounds. Absent: distended, tenderness, guarding, rebound, rigid Neurological exam: Present: alert, oriented X3, CN II-XII intact Skin exam: Present: warm, dry, intact, normal color. Absent: rash Course Vital Signs 06/20/21 06/20/21 06/20/21 07:31 08:51 10:01 Temperature 99.1 F Pulse Rate 87 75 69 Respiratory 20 18 20 Rate Blood Pressure 116/73 123/72 104/65 O2 Sat by Pulse 93 L 99 96 Oximetry Medical Decision Making - Medical Decision Making Labs reveal mild dehydration otherwise unremarkable. Patient feels greatly improved after IV fluids. Patient feels comfortable with discharge. - Lab Data Result diagrams: 06/20/21 07:45 06/20/21 07:45 Lab Results 06/20/21 06/20/21 06/20/21 Range/Units 07:45 07:45 07:45 WBC 5.1 (3.8-10.6) k/uL RBC 4.94 (4.30-5.90) m/uL Hgb 15.2 (13.0-17.5) gm/dL Hct 45.4 (39.0-53.0) % MCV 91.9 (80.0-100.0) fL MCH 30.8 (25.0-35.0) pg MCHC 33.6 (31.0-37.0) g/dL RDW 13.9 (11.5-15.5) % Plt Count 94 L (150-450) k/uL MPV 9.7 Neutrophils % 80 % Lymphocytes % 12 % Monocytes % 5 % Eosinophils % 0 % Basophils % 0 % Neutrophils # 4.1 (1.3-7.7) k/uL Lymphocytes # 0.6 L (1.0-4.8) k/uL Monocytes # 0.2 (0-1.0) k/uL Eosinophils # 0.0 (0-0.7) k/uL Basophils # 0.0 (0-0.2) k/uL Manual Slide Review Performed RBC Morphology Normal PT 20.0 H (9.0-12.0) sec INR 2.0 H (<1.2) APTT 42.3 H (22.0-30.0) sec D-Dimer 0.47 (<0.60) mg/L FEU Sodium 136 L (137-145) mmol/L Potassium 4.7 (3.5-5.1) mmol/L Chloride 102 (98-107) mmol/L Carbon Dioxide 25 (22-30) mmol/L Anion Gap 9 mmol/L BUN 15 (9-20) mg/dL Creatinine 1.07 (0.66-1.25) mg/dL Est GFR (CKD-EPI)AfAm 79 (>60 ml/min/1.73 sqM) Est GFR (CKD-EPI)NonAf 69 (>60 ml/min/1.73 sqM) Glucose 124 H (74-99) mg/dL Calcium 8.4 (8.4-10.2) mg/dL Magnesium 1.8 (1.6-2.3) mg/dL Total Bilirubin 1.0 (0.2-1.3) mg/dL AST 45 (17-59) U/L ALT 20 (4-49) U/L Alkaline Phosphatase 21 L (38-126) U/L Troponin I (0.000-0.034) ng/mL Total Protein 6.8 (6.3-8.2) g/dL Albumin 3.9 (3.5-5.0) g/dL Urine Color Urine Appearance (Clear) Urine pH (5.0-8.0) Ur Specific [place] (1.001-1.035) Urine Protein (Negative) Urine Glucose (UA) (Negative) Urine Ketones (Negative) Urine Blood (Negative) Urine Nitrite (Negative) Urine Bilirubin (Negative) Urine Urobilinogen (<2.0) mg/dL Ur Leukocyte Esterase (Negative) Urine RBC (0-5) /hpf Urine WBC (0-5) /hpf Ur Squamous Epith Cells (0-4) /hpf Urine Mucus (None) /hpf 06/20/21 06/20/21 Range/Units 07:45 10:30 WBC (3.8-10.6) k/uL RBC (4.30-5.90) m/uL Hgb (13.0-17.5) gm/dL Hct (39.0-53.0) % MCV (80.0-100.0) fL MCH (25.0-35.0) pg MCHC (31.0-37.0) g/dL RDW (11.5-15.5) % Plt Count (150-450) k/uL MPV Neutrophils % % Lymphocytes % % Monocytes % % Eosinophils % % Basophils % % Neutrophils # (1.3-7.7) k/uL Lymphocytes # (1.0-4.8) k/uL Monocytes # (0-1.0) k/uL Eosinophils # (0-0.7) k/uL Basophils # (0-0.2) k/uL Manual Slide Review RBC Morphology PT (9.0-12.0) sec INR (<1.2) APTT (22.0-30.0) sec D-Dimer (<0.60) mg/L FEU Sodium (137-145) mmol/L Potassium (3.5-5.1) mmol/L Chloride (98-107) mmol/L Carbon Dioxide (22-30) mmol/L Anion Gap mmol/L BUN (9-20) mg/dL Creatinine (0.66-1.25) mg/dL Est GFR (CKD-EPI)AfAm (>60 ml/min/1.73 sqM) Est GFR (CKD-EPI)NonAf (>60 ml/min/1.73 sqM) Glucose (74-99) mg/dL Calcium (8.4-10.2) mg/dL Magnesium (1.6-2.3) mg/dL Total Bilirubin (0.2-1.3) mg/dL AST (17-59) U/L ALT (4-49) U/L Alkaline Phosphatase (38-126) U/L Troponin I 0.017 (0.000-0.034) ng/mL Total Protein (6.3-8.2) g/dL Albumin (3.5-5.0) g/dL Urine Color Yellow Urine Appearance Clear (Clear) Urine pH 6.0 (5.0-8.0) Ur Specific [place] 1.016 (1.001-1.035) Urine Protein 1+ H (Negative) Urine Glucose (UA) Negative (Negative) Urine Ketones 2+ H (Negative) Urine Blood Trace H (Negative) Urine Nitrite Negative (Negative) Urine Bilirubin Negative (Negative) Urine Urobilinogen <2.0 (<2.0) mg/dL Ur Leukocyte Esterase Negative (Negative) Urine RBC 2 (0-5) /hpf Urine WBC 2 (0-5) /hpf Ur Squamous Epith Cells <1 (0-4) /hpf Urine Mucus Occasional H (None) /hpf Disposition Clinical Impression: Syncope, COVID-19, Dehydration Disposition: HOME SELF-CARE Condition: Stable Instructions (If sedation given, give patient instructions): Coronavirus Disease 2019 (COVID-19) Additional Instructions: Please return to the Emergency Department if symptoms worsen or any other concerns. Is patient prescribed a controlled substance at d/c from ED?: No Referrals: Kim Luna III, MD [Primary Care Provider] - 1-2 days Time of Disposition: 11:25
[2021-06-20 11:55] VITALS: BP 131/87; PULSE 68; RESP 16
== END 2021-06-20 11:55 | disposition home or self-care (01) ==
LOC: EC 07:20
DX: U07.1 COVID-19 (principal); R55 Syncope and collapse; E86.0 Dehydration; I48.91 Unspecified atrial fibrillation; M19.90 Unspecified osteoarthritis, unspecified site; Z87.891 Personal history of nicotine dependence; Z79.899 Other long term (current) drug therapy; Z79.01 Long term (current) use of anticoagulants
CPT/HCPCS: 36415; 71046; 80053; 81001; 83735; 84484; 85025; 85379; 85610; 85730; 93005; 96360; 96361; 99284

== ENCOUNTER 2022-07-12 17:30 | Inpatient (IN) | payer MEDICARE, OTHER ==
[2022-07-12] MEDS ORDERED: SODIUM CHLORIDE 0.9% 500 ML 500 ML IV STA (18:05)
[2022-07-12] MEDS ORDERED: SODIUM CHLORIDE 0.9% 500 ML 1,000 ML IV STA (18:27)
[2022-07-12] MEDS ORDERED: METOPROLOL TARTRATE 5 MG/5 ML VIAL IVP STA (18:27)
[2022-07-12 18:35] LABS: Basophils % (A) 0 %; Eosinophils # (A) 0.1 k/uL (0-0.7); Eosinophils % (A) 1 %; HCT 44.4 % (39.0-53.0); HGB 15.1 gm/dL (13.0-17.5); Lymphocytes # (A) 1.4 k/uL (1.0-4.8); Lymphocytes % (A) 15 %; MCH 31.1 pg (25.0-35.0); MCV 91.4 fL (80.0-100.0); Monocytes # (A) 0.3 k/uL (0-1.0); Monocytes % (A) 4 %; Neutrophils # (A) 6.9 k/uL (1.3-7.7); Neutrophils % (A) 78 %; Platelet Count 157 k/uL (150-450); RBC 4.86 m/uL (4.30-5.90); RDW 14.2 % (11.5-15.5); WBC 8.9 k/uL (3.8-10.6)
--- NOTE | 2022-07-12 18:39 | ED ---
General Adult HPI - General Chief complaint: Arrhythmia/Palpitations Stated complaint: A fib, NAZIA Time Seen by Provider: 07/12/22 17:55 Source: patient Mode of arrival: ambulatory Limitations: no limitations - History of Present Illness Initial comments: Dictation was produced using [employer] dictation software. please excuse any grammatical, word or spelling errors. Chief Complaint: 77-year-old male past medical history of atrial fibrillation presents emergency Department with palpitations, lightheadedness History of Present Illness: Patient is 77-year-old male past medical history of fibrillation. Patient states that he was at a restaurant today walking up the stairs when all of a sudden he felt short of breath and feelings of dizziness. Brought to the emergency department by . Patient takes Coumadin for each of fibrillation. He also takes metoprolol. Patient had several alcoholic beverages last night. Patient at rest feels fine. Denies any chest pain shortness of breath. The ROS documented in this emergency department record has been reviewed and confirmed by me. Those systems with pertinent positive or negative responses have been documented in the HPI. All other systems are other negative and/or noncontributory. PHYSICAL EXAM: General Impression: Alert and oriented x3, not in acute distress HEENT: Normocephalic atraumatic, extra-ocular movements intact, pupils equal and reactive to light bilaterally, mucous membranes moist. Cardiovascular: Irregularly irregular headache Chest: Able to complete full sentences, no retractions, no tachypnea Abdomen: abdomen soft, non-tender, non-distended, no organomegaly Musculoskeletal: Pulses present and equal in all extremities, no peripheral edema Motor: no focal deficits noted Neurological: CN II-XII grossly intact, no focal motor or sensory deficits noted Skin: Intact with no visualized rashes Psych: Normal affect and mood ED course: 77-year-old male presents emergency department for palpitations dizziness. Vital signs upon arrival shows heart rate of 1:30, blood pressure 117/73. Patient's well-appearing. Repeat blood pressures 89/60 with a heart rate in the 140s. Nursing notes and chart review was performed EKG interpreted by me: Ventricular rate 130, atrial flutter, QRS 94, QTC 351. No NM prolongation, no QTC prolongation, no ST or T-wave changes noted. Laboratory evaluation obtained. CBC normal. INR is therapeutic. Metabolic panel is unremarkable. Troponin is 0.036 which is slightly above his baseline. Patient's blood pressures were borderline. He started on amiodarone drip. Patient reevaluated bedside and coffee and found to be stable medical condition. He still tachycardic. Blood pressures are stable with averaging in the 80s. Patient was admitted for A. fib RVR with symptoms. Cardiology consulted. Was pt. sent in by a medical professional or institution (, [facility], FOOD SAFETY FIELD SPECIALIST, urgent care, hospital, or intermediate...) When possible be specific @ -No Did you speak to anyone other than the patient for history (EMS, parent, family, police, friend...)? What history was obtained from this source @ - at the bedside Did you review nursing and triage notes (agree or disagree)? Why? @ -I reviewed and agree with nursing and triage notes Were old charts reviewed (outside hosp., previous admission, EMS record, old EKG, old radiological studies, urgent care reports/EKG's, intermediate records)? Report findings @ -No old charts were reviewed Differential Diagnosis (chest pain, altered mental status, abdominal pain women, abdominal pain men, vaginal bleeding, weakness, fever, dyspnea, syncope, headache, dizziness, GI bleed, back pain, seizure, CVA, palpatations, mental health)? @ -Differential Weakness: Hypoglycemia, shock, sepsis, hyponatremia, anemia, infection, MD, ETOH, adverse medicine reaction, overdose, stroke, this is not meant to be an all-inclusive list. EKG interpreted by me (3pts min.). @ -As above X-rays interpreted by me (1pt min.). @ -As above CT interpreted by me (1pt min.). @ -None done U/S interpreted by me (1pt. min.). @ -None done What testing was considered but not performed or refused? (CT, X-rays, U/S, labs)? Why? @ -None What meds were considered but not given or refused? Why? @ -Electrical cardioversion was considered however patient is stable likely Did you discuss the management of the patient with other professionals (professionals i.e. , [facility], FOOD SAFETY FIELD SPECIALIST, lab, RT, psych nurse, social director, mutual fund manager, teacher, correction officer head, bilingual case manager)? Give summary @ -Physician assistant Cabello from [facility] Was smoking cessation discussed for >3mins.? @ -No Was critical care preformed (if so, how long)? @33 minutes, yes Were there social determinants of health that impacted care today? How? (Homelessness, low income, unemployed, alcoholism, drug addiction, transportation, low edu. Level, literacy, decrease access to med. care, halfway, rehab)? @ -No Was there de-escalation of care discussed even if they declined (Discuss DNR or withdrawal of care, Hospice)? DNR status @ -No What co-morbidities impacted this encounter? (DM, HTN, Smoking, COPD, CAD, Cancer, CVA, ARF, Chemo, Hep., AIDS, mental health diagnosis, sleep apnea, morbid obesity)? @ -None Was patient admitted / discharged? Hospital course, mention meds given and route, prescriptions, significant lab abnormalities, going to OR and other pertinent info. @ -See above Undiagnosed new problem with uncertain prognosis? @ -No Drug Therapy requiring intensive monitoring for toxicity (Heparin, Nitro, Insulin, Cardizem)? @ -No Were any procedures done? @ -No Diagnosis/symptom? @ -A. fib with RVR Acute, or Chronic, or Acute on Chronic? @ -Acute on chronic Uncomplicated (without systemic symptoms) or Complicated (systemic symptoms)? @ -Complicated Side effects of treatment? @ -No Exacerbation, Progression, or Severe Exacerbation? @ -Severe Exacerbation Poses a threat to life or bodily function? How? (Chest pain, USA, MD, pneumonia, PE, COPD, DKA, ARF, appy, cholecystitis, CVA, Diverticulitis, Homicidal, Suicidal, threat to staff... and all critical care pts) @ -Yes - Related Data Home Medications Medication Instructions Recorded Confirmed SUMAtriptan succinate [Imitrex] 50 mg PO DAILY PRN 09/15/15 06/20/21 Naproxen Sodium [Aleve] 440 mg PO BID 11/29/15 06/20/21 Atorvastatin [Lipitor] 20 mg PO DAILY 12/11/19 06/20/21 Warfarin Sodium 5 mg PO [id number]@209902/22/20 06/20/21 Warfarin [Coumadin] 2.5 mg PO [id number]/11/21 06/20/21 Cholecalciferol [Vitamin D3 (125 125 mcg PO DAILY 06/20/21 06/20/21 Mcg = 5000 Iu)] Previous Rx's Medication Instructions Recorded Metoprolol Succinate (ER) [Toprol 25 mg PO DAILY #0 01/15/21 XL] Allergies Allergy/AdvReac Type Severity Reaction Status Date / Time No Known Allergies Allergy Verified 07/12/22 17:40 Review of Systems ROS Statement: Those systems with pertinent positive or pertinent negative responses have been documented in the HPI. ROS Other: All systems not noted in ROS Statement are negative. Past Medical History Past Medical History: Atrial Fibrillation, Cancer, Hyperlipidemia, Osteoarthritis (OA), Prostate Disorder Additional Past Medical History / Comment(s): migraines, hx prostate cancer, hx melanoma History of Any Multi-Drug Resistant Organisms: None Reported Past Surgical History: Adenoidectomy, Back Surgery, Cardiac Valve Replacement, Prostate Surgery Additional Past Surgical History / Comment(s): aortic valve replacement, precancer lesions removed from hands and forehead, melanoma removed from arm, cardioversion Past Anesthesia/Blood Transfusion Reactions: No Reported Reaction Past Psychological History: No Psychological Hx Reported Smoking Status: Former smoker Past Alcohol Use History: Occasional Past Drug Use History: None Reported - Past Family History Father Family Medical History: Cancer Additional Family Medical History / Comment(s): throat Mother Family Medical History: Congestive Heart Failure (CHF) Additional Family Medical History / Comment(s): Mother of Heart Failure at 80 Brother(s) Family Medical History: Cancer Additional Family Medical History / Comment(s): stomach General Exam Limitations: no limitations Course Vital Signs 07/12/22 07/12/22 17:38 19:31 Temperature 98.2 F Pulse Rate 130 H 130 H Respiratory 20 18 Rate Blood Pressure 117/73 110/68 O2 Sat by Pulse 96 95 Oximetry Medical Decision Making - Lab Data Result diagrams: 07/12/22 18:21 07/12/22 18:21 Lab Results 07/12/22 07/12/22 07/12/22 Range/Units 18:21 18:21 18:21 WBC 8.9 (3.8-10.6) k/uL RBC 4.86 (4.30-5.90) m/uL Hgb 15.1 (13.0-17.5) gm/dL Hct 44.4 (39.0-53.0) % MCV 91.4 (80.0-100.0) fL MCH 31.1 (25.0-35.0) pg MCHC 34.0 (31.0-37.0) g/dL RDW 14.2 (11.5-15.5) % Plt Count 157 (150-450) k/uL MPV 8.0 Neutrophils % 78 % Lymphocytes % 15 % Monocytes % 4 % Eosinophils % 1 % Basophils % 0 % Neutrophils # 6.9 (1.3-7.7) k/uL Lymphocytes # 1.4 (1.0-4.8) k/uL Monocytes # 0.3 (0-1.0) k/uL Eosinophils # 0.1 (0-0.7) k/uL Basophils # 0.0 (0-0.2) k/uL PT 27.6 H (9.0-12.0) sec INR 2.8 H (<1.2) APTT 40.1 H (22.0-30.0) sec Sodium 142 (137-145) mmol/L Potassium 4.6 (3.5-5.1) mmol/L Chloride 110 H (98-107) mmol/L Carbon Dioxide 21 L (22-30) mmol/L Anion Gap 11 mmol/L BUN 19 (9-20) mg/dL Creatinine 1.12 (0.66-1.25) mg/dL Est GFR (CKD-EPI)AfAm 74 (>60 ml/min/1.73 sqM) Est GFR (CKD-EPI)NonAf 64 (>60 ml/min/1.73 sqM) Glucose 190 H (74-99) mg/dL Calcium 9.1 (8.4-10.2) mg/dL Magnesium 1.8 (1.6-2.3) mg/dL Total Bilirubin 0.5 (0.2-1.3) mg/dL AST 24 (17-59) U/L ALT 24 (4-49) U/L Alkaline Phosphatase 33 L (38-126) U/L Troponin I (0.000-0.034) ng/mL Total Protein 7.0 (6.3-8.2) g/dL Albumin 4.6 (3.5-5.0) g/dL 07/12/22 Range/Units 18:21 WBC (3.8-10.6) k/uL RBC (4.30-5.90) m/uL Hgb (13.0-17.5) gm/dL Hct (39.0-53.0) % MCV (80.0-100.0) fL MCH (25.0-35.0) pg MCHC (31.0-37.0) g/dL RDW (11.5-15.5) % Plt Count (150-450) k/uL MPV Neutrophils % % Lymphocytes % % Monocytes % % Eosinophils % % Basophils % % Neutrophils # (1.3-7.7) k/uL Lymphocytes # (1.0-4.8) k/uL Monocytes # (0-1.0) k/uL Eosinophils # (0-0.7) k/uL Basophils # (0-0.2) k/uL PT (9.0-12.0) sec INR (<1.2) APTT (22.0-30.0) sec Sodium (137-145) mmol/L Potassium (3.5-5.1) mmol/L Chloride (98-107) mmol/L Carbon Dioxide (22-30) mmol/L Anion Gap mmol/L BUN (9-20) mg/dL Creatinine (0.66-1.25) mg/dL Est GFR (CKD-EPI)AfAm (>60 ml/min/1.73 sqM) Est GFR (CKD-EPI)NonAf (>60 ml/min/1.73 sqM) Glucose (74-99) mg/dL Calcium (8.4-10.2) mg/dL Magnesium (1.6-2.3) mg/dL Total Bilirubin (0.2-1.3) mg/dL AST (17-59) U/L ALT (4-49) U/L Alkaline Phosphatase (38-126) U/L Troponin I 0.036 H* (0.000-0.034) ng/mL Total Protein (6.3-8.2) g/dL Albumin (3.5-5.0) g/dL Disposition Clinical Impression: Atrial fibrillation with RVR, Pre-syncope Disposition: ADMITTED IP TO THIS [facility] Condition: Serious Referrals: Kim Luna III, MD [Primary Care Provider] - 1-2 days Decision Time: 20:10
[2022-07-12 18:45] LABS: INR 2.8 (<1.2); Partial Thromboplastin Time 40.1 sec (22.0-30.0); Prothrombin Time 27.6 sec (9.0-12.0)
[2022-07-12] MEDS ORDERED: DEXTROSE 5% IN WATER 100 ML with AMIODARONE 150 MG IV ONE (18:50)
[2022-07-12] MEDS ORDERED: AMIODARONE 360 MG in DEXTROSE 5% IN WATER 200 ML IV ONE ×2 (19:00)
[2022-07-12 19:06] LABS: Albumin 4.6 g/dL (3.5-5.0); Calcium 9.1 mg/dL (8.4-10.2); Magnesium 1.8 mg/dL (1.6-2.3); Potassium 4.6 mmol/L (3.5-5.1); Total Bilirubin 0.5 mg/dL (0.2-1.3)
--- NOTE | 2022-07-12 19:25 | XR ---
EXAMINATION TYPE: XR chest 2V DATE OF EXAM: 07/12/2022 COMPARISON: 06/20/2021 HISTORY: Palpitations TECHNIQUE: 2 views FINDINGS: There is no heart failure nor confluent pneumonic infiltrate. There are sternal wires. Ther e is cardiac valve surgery. A fax is intact. IMPRESSION: No active cardiopulmonary disease. No change.
[2022-07-12] MEDS ORDERED: NALOXONE 0.4 MG/ML 1 ML VIAL IV PRN (20:02)
[2022-07-13] MEDS ORDERED: AMIODARONE 450 MG in DEXTROSE 5% IN WATER 250 ML IV SCH ×2 (01:00)
[2022-07-13] MEDS: SODIUM CHLORIDE 0.9% 1,000 ML IV SCH ×2 (01:15→22:34)
[2022-07-13] MEDS: NAPROXEN 250 MG TAB PO SCH (08:42)
[2022-07-13] MEDS: ZINC SULFATE 220 MG CAP PO SCH (08:42)
[2022-07-13] MEDS: METOPROLOL SUCCINATE (ER) 25 MG TAB.ER.24H PO SCH (08:42)
[2022-07-13] MEDS: MAGNESIUM OXIDE 400 MG TAB PO SCH (08:42)
[2022-07-13] MEDS: CHOLECALCIFEROL 125 MCG (5000 IU) TABLET PO SCH (08:42)
[2022-07-13] MEDS ORDERED: POTASSIUM CHLORIDE ER 10 MEQ TAB.ER.PRT PO SCH (09:00)
[2022-07-13 09:41] LABS: INR 3.4 (<1.2)
[2022-07-13 09:42] LABS: Calcium 8.9 mg/dL (8.4-10.2); Potassium 4.9 mmol/L (3.5-5.1)
--- NOTE | 2022-07-13 12:51 | P.CRDCN ---
History of Present Illness Consult date: 07/13/22 History of present illness: This pleasant 77-year-old gentleman has a known history of atrial fibrillation and aortic valve replacement. Along with hyperlipidemia, osteoarthritis, prostate disorder, cancer of the prostate, history of melanoma, migraines. He follows with Dr. Justin in the office. We've been consulted see him for an episode of atrial fibrillation with RVR. Patient is on oral anticoagulation Coumadin. Patient was out to dinner when he began suddenly feeling short of breath and dizzy. His initial EKG showed atrial flutter with a ventricular rate of 130. Patient was started on amiodarone drip. He takes Toprol-XL 25 mg daily at home. He denies missing a dose of medication. Patient is examined today resting comfortably in bed in no signs of acute distress he remains in atrial fibrillation with a controlled ventricle rate in the 70s to 80s. Will discontinue amiodarone drip and start amiodarone 200 mg twice a day, will decrease Coumadin to 4 mg. Additional doses for pharmacy to dose. Will obtain a 2-D echocardiogram. Possible discharge home in the next 24 hours. Review of Systems REVIEW OF SYSTEMS At the time of my exam: CONSTITUTIONAL: Denies fever or chills. EYES: Negative for vision changes ENT: Negative for hearing loss CARDIOVASCULAR: Denies chest pain, shortness of breath, diaphoresis, orthopnea, PND or palpitations. VASCULAR: Denies edema RESPIRATORY: Denies cough. Complains of shortness of breath GASTROINTESTINAL: Denies abdominal pain, diarrhea, constipation, nausea or vomiting. MUSCULOSKELETAL: Denies myalgias. NEUROLOGIC: Denies numbness, tingling, headache or weakness. Complains of dizziness ENDOCRINE: Denies fatigue, weight change, polydipsia or polyurina. GENITOURINARY: Denies burning, hematuria or urgency with micturation. HEMATOLOGIC: Denies history of anemia or bleeding. DERMATOLOGY: Denies rash or skin sores PSYCH: Negative for depression or hallucinations. Past Medical History Past Medical History: Atrial Fibrillation, Cancer, Hyperlipidemia, Osteoarthritis (OA), Prostate Disorder Additional Past Medical History / Comment(s): migraines, hx prostate cancer, hx melanoma History of Any Multi-Drug Resistant Organisms: None Reported Past Surgical History: Adenoidectomy, Back Surgery, Cardiac Valve Replacement, Prostate Surgery Additional Past Surgical History / Comment(s): aortic valve replacement, precancer lesions removed from hands and forehead, melanoma removed from arm, cardioversion Past Anesthesia/Blood Transfusion Reactions: No Reported Reaction Past Psychological History: No Psychological Hx Reported Smoking Status: Former smoker Past Alcohol Use History: Occasional Additional Past Alcohol Use History / Comment(s): smoked from [id number], 1 PPD Past Drug Use History: None Reported - Past Family History Father Family Medical History: Cancer Additional Family Medical History / Comment(s): throat Mother Family Medical History: Congestive Heart Failure (CHF) Additional Family Medical History / Comment(s): Mother of Heart Failure at 80 Brother(s) Family Medical History: Cancer Additional Family Medical History / Comment(s): stomach Medications and Allergies Home Medications Medication Instructions Recorded Confirmed Type Naproxen Sodium [Aleve] 440 mg PO DAILY 11/29/15 07/12/22 History Warfarin Sodium 5 mg PO DAILY 02/22/20 07/12/22 History Metoprolol Succinate (ER) [Toprol 25 mg PO DAILY #0 01/15/21 07/12/22 Rx XL] Cholecalciferol [Vitamin D3 (125 125 mcg PO DAILY 06/20/21 07/12/22 History Mcg = 5000 Iu)] Magnesium 250 mg PO DAILY 07/12/22 07/12/22 History Potassium Gluconate [Potassium 99 mg PO DAILY 07/12/22 07/12/22 History Gluconate ER] Zinc Sulfate 50 mg PO DAILY 07/12/22 07/12/22 History Allergies Allergy/AdvReac Type Severity Reaction Status Date / Time No Known Allergies Allergy Verified 07/12/22 20:23 Physical Exam Vitals: Vital Signs Temp Pulse Pulse Resp BP BP Pulse Ox 07/13/22 08:00 98.3 F 86 16 123/75 95 07/13/22 03:29 97.5 F L 82 16 111/76 95 07/12/22 21:46 97.3 F L 123 H 17 115/72 95 07/12/22 20:30 131 H 18 104/81 98 07/12/22 19:31 130 H 18 110/68 95 07/12/22 17:38 98.2 F 130 H 20 117/73 96 Intake and Output 07/12/22 07/13/22 07/13/22 22:59 06:59 14:59 Other: Weight 86.183 kg General: The patient is awake and alert, in no distress, and does not appear acutely ill. Skin: Skin is warm and dry and no rashes or lesions are noted. Eye: Pupils are equal, round and reactive to light, extra-ocular movements are intact; there is normal conjunctiva bilaterally. Ears, nose, mouth and throat: There are moist mucous membranes and no oral lesions. Neck: The neck is supple, there is no tenderness or JVD. Cardiovascular: There is irregular rate and rhythm. No murmur, rub or gallop is appreciated. Respiratory: Lungs are clear to auscultation, respirations are non-labored, breath sounds are equal. Gastrointestinal: Soft, non-distended, non-tender abdomen without masses or organomegaly noted. There is no rebound or guarding present. Bowel sounds are unremarkable. Back: There is no tenderness to palpation in the midline. There is no obvious deformity. Musculoskeletal: Normal ROM, no tenderness, There is no pedal edema. There is no calf tenderness or swelling. Extremities: Mild bilateral pitting edema Vascular: Femoral pulse is normal. Posterior tibial pulses are normal .Dorsalis pedis is palpable. Neurological: CN II-XII intact. There are no obvious motor or sensory deficits. Speech is normal. Psychiatric: Cooperative, appropriate mood & affect, normal judgment Results 07/12/22 18:21 07/13/22 08:51 Cardiac Enzymes 07/12/22 07/12/22 Range/Units 18:21 18:21 AST 24 (17-59) U/L Troponin I 0.036 H* (0.000-0.034) ng/mL Coagulation 07/12/22 07/13/22 Range/Units 18:21 08:51 PT 27.6 H 33.0 H (9.0-12.0) sec APTT 40.1 H (22.0-30.0) sec CBC 07/12/22 Range/Units 18:21 WBC 8.9 (3.8-10.6) k/uL RBC 4.86 (4.30-5.90) m/uL Hgb 15.1 (13.0-17.5) gm/dL Hct 44.4 (39.0-53.0) % Plt Count 157 (150-450) k/uL Comprehensive Metabolic Panel 07/12/22 07/13/22 Range/Units 18:21 08:51 Sodium 142 140 (137-145) mmol/L Potassium 4.6 4.9 (3.5-5.1) mmol/L Chloride 110 H 108 H (98-107) mmol/L Carbon Dioxide 21 L 27 (22-30) mmol/L BUN 19 20 (9-20) mg/dL Creatinine 1.12 1.12 (0.66-1.25) mg/dL Glucose 190 H 97 (74-99) mg/dL Calcium 9.1 8.9 (8.4-10.2) mg/dL AST 24 (17-59) U/L ALT 24 (4-49) U/L Alkaline Phosphatase 33 L (38-126) U/L Total Protein 7.0 (6.3-8.2) g/dL Albumin 4.6 (3.5-5.0) g/dL Current Medications Generic Name Dose Route Start Last Admin Trade Name Freq PRN Reason Stop Dose Admin Cholecalciferol 125 mcg 07/13/22 09:00 07/13/22 08:42 Cholecalciferol 125 Mcg (5000 Iu) Tablet PO 125 mcg DAILY STEVE Administration Amiodarone HCl 450 mg/ 250 mls @ 16.667 mls/hr 07/13/22 01:00 07/13/22 01:15 Dextrose/Water IV 07/13/22 18:59 0.5 mg/min .Q15H STEVE 16.667 mls/hr Administration Protocol 0.5 MG/MIN Sodium Chloride 1,000 mls @ 20 mls/hr 07/12/22 20:15 07/13/22 01:15 Saline 0.9% IV 20 mls/hr .Q24H STEVE Administration Magnesium Oxide 400 mg 07/13/22 09:00 07/13/22 08:42 Magnesium Oxide 400 Mg Tab PO 400 mg DAILY STEVE Administration Metoprolol Succinate 25 mg 07/13/22 09:00 07/13/22 08:42 Metoprolol Succinate (Er) 25 Mg Tab.Er.24h PO 25 mg DAILY STEVE Administration Miscellaneous Information 1 each 07/13/22 06:58 Warfarin Per Pharmacy MISCELLANE DIRECTED PRN Per Protocol Protocol Naloxone HCl 0.2 mg 07/12/22 20:02 Naloxone 0.4 Mg/Ml 1 Ml Vial IV Q2M PRN Opioid Reversal Naproxen 500 mg 07/13/22 09:00 07/13/22 08:42 Naproxen 250 Mg Tab PO 500 mg DAILY STEVE Administration Warfarin Sodium 0 mg 07/13/22 18:00 Warfarin 0.5 Mg Tab PO 07/13/22 18:01 ONCE@1800 ONE Zinc Sulfate 220 mg 07/13/22 09:00 07/13/22 08:42 Zinc Sulfate 220 Mg Cap PO 220 mg DAILY STEVE Administration Intake and Output 07/12/22 07/13/22 07/13/22 22:59 06:59 14:59 Other: Weight 86.183 kg 07/12/22 18:21 07/13/22 08:51 Assessment and Plan Assessment: Persistent atrial fibrillation status post aortic valve replacement Plan: Continue with oral anticoagulation Coumadin Discontinue amiodarone drip and start by mouth amiodarone 200 mg twice a day Decrease Coumadin to 4 mg Obtain a 2-D echocardiogram Continue with current cardiac medications Possible discharge in the next 24 hours Further recommendations based on clinical course The above impression and plan of care have been discussed and directed by the signing physician. Rachele Craven, nurse practitioner, acting as scribe for signing physician.
--- NOTE | 2022-07-13 13:04 | P.HPIM ---
History of Present Illness 72-year-old male with a history of valvular atrial fibrillation came in with the complaints of dizziness and lightheadedness found to be negative fibrillation with rapid Rate patient uses usually takes 25 mg of extended release metoprolol. Usually takes 4 mg of Coumadin. Patient was started on amiodarone drip patient. INR is therapeutic on admission but went up to 3.5 now. Patient is clinically doing well cardiology evaluated the patient and recommended monitoring for 24 hours. REVIEW OF SYSTEMS: CONSTITUTIONAL: No fever, no malaise, no fatigue. HEENT: No recent visual problems or hearing problems. Denied any sore throat. CARDIOVASCULAR: No chest pain, orthopnea, PND, no palpitations, no syncope. PULMONARY: No shortness of breath, no cough, no hemoptysis. GASTROINTESTINAL: No diarrhea, no nausea, no vomiting, no abdominal pain. NEUROLOGICAL: No headaches, no weakness, no numbness. HEMATOLOGICAL: Denies any bleeding or petechiae. GENITOURINARY: Denies any burning micturition, frequency, or urgency. MUSCULOSKELETAL/RHEUMATOLOGICAL: Denies any joint pain, swelling, or any muscle pain. ENDOCRINE: Denies any polyuria or polydipsia. The rest of the 14-point review of systems is negative. PHYSICAL EXAMINATION: GENERAL: The patient is alert and oriented x3, not in any acute distress. Well developed, well nourished. HEENT: Pupils are round and equally reacting to light. EOMI. No scleral icterus. No conjunctival pallor. Normocephalic, atraumatic. No pharyngeal erythema. No thyromegaly. CARDIOVASCULAR: S1 and S2 present. No murmurs, rubs, or gallops. PULMONARY: Chest is clear to auscultation, no wheezing or crackles. ABDOMEN: Soft, nontender, nondistended, normoactive bowel sounds. No palpable organomegaly. MUSCULOSKELETAL: No joint swelling or deformity. EXTREMITIES: No cyanosis, clubbing, or pedal edema. NEUROLOGICAL: Gross neurological examination did not reveal any focal deficits. SKIN: No rashes. Assessment and plan -Atrial fibrillation with rapid ventricular rate, amiodarone was added to his regimen and patient is also on Toprol-XL and amiodarone and tract with Coumadin because of which dose of Coumadin to be decreased upon discharge patient's INR is therapy at this time presently pharmacy is dosing Coumadin. -Hyperlipidemia -Benign prostatic hypertrophy, history of valve replacement aortic valve -Mild hyperchloremic metabolic acidosis DVT prophylaxis: On Coumadin Past Medical History Past Medical History: Atrial Fibrillation, Cancer, Hyperlipidemia, Osteoarthritis (OA), Prostate Disorder Additional Past Medical History / Comment(s): migraines, hx prostate cancer, hx melanoma History of Any Multi-Drug Resistant Organisms: None Reported Past Surgical History: Adenoidectomy, Back Surgery, Cardiac Valve Replacement, Prostate Surgery Additional Past Surgical History / Comment(s): aortic valve replacement, precancer lesions removed from hands and forehead, melanoma removed from arm, cardioversion Past Anesthesia/Blood Transfusion Reactions: No Reported Reaction Past Psychological History: No Psychological Hx Reported Smoking Status: Former smoker Past Alcohol Use History: Occasional Additional Past Alcohol Use History / Comment(s): smoked from [id number], 1 PPD Past Drug Use History: None Reported - Past Family History Father Family Medical History: Cancer Additional Family Medical History / Comment(s): throat Mother Family Medical History: Congestive Heart Failure (CHF) Additional Family Medical History / Comment(s): Mother of Heart Failure at 80 Brother(s) Family Medical History: Cancer Additional Family Medical History / Comment(s): stomach Medications and Allergies Home Medications Medication Instructions Recorded Confirmed Type Naproxen Sodium [Aleve] 440 mg PO DAILY 11/29/15 07/12/22 History Warfarin Sodium 5 mg PO DAILY 02/22/20 07/12/22 History Metoprolol Succinate (ER) [Toprol 25 mg PO DAILY #0 01/15/21 07/12/22 Rx XL] Cholecalciferol [Vitamin D3 (125 125 mcg PO DAILY 06/20/21 07/12/22 History Mcg = 5000 Iu)] Magnesium 250 mg PO DAILY 07/12/22 07/12/22 History Potassium Gluconate [Potassium 99 mg PO DAILY 07/12/22 07/12/22 History Gluconate ER] Zinc Sulfate 50 mg PO DAILY 07/12/22 07/12/22 History Allergies Allergy/AdvReac Type Severity Reaction Status Date / Time No Known Allergies Allergy Verified 07/12/22 20:23 Physical Exam Vitals: Vital Signs Temp Pulse Pulse Resp BP BP Pulse Ox 07/13/22 12:00 104 H 16 105/72 97 07/13/22 08:00 98.3 F 86 16 123/75 95 07/13/22 03:29 97.5 F L 82 16 111/76 95 07/12/22 21:46 97.3 F L 123 H 17 115/72 95 07/12/22 20:30 131 H 18 104/81 98 07/12/22 19:31 130 H 18 110/68 95 07/12/22 17:38 98.2 F 130 H 20 117/73 96 Intake and Output 07/12/22 07/13/22 07/13/22 22:59 06:59 14:59 Other: Weight 86.183 kg Results CBC & Chem 7: 07/12/22 18:21 07/13/22 08:51 Labs: Abnormal Lab Results - Last 24 Hours (Table) 07/12/22 07/12/22 07/12/22 Range/Units 18:21 18:21 18:21 PT 27.6 H (9.0-12.0) sec INR 2.8 H (<1.2) APTT 40.1 H (22.0-30.0) sec Chloride 110 H (98-107) mmol/L Carbon Dioxide 21 L (22-30) mmol/L Glucose 190 H (74-99) mg/dL Alkaline Phosphatase 33 L (38-126) U/L Troponin I 0.036 H* (0.000-0.034) ng/mL 07/13/22 07/13/22 Range/Units 08:51 08:51 PT 33.0 H (9.0-12.0) sec INR 3.4 H (<1.2) APTT (22.0-30.0) sec Chloride 108 H (98-107) mmol/L Carbon Dioxide (22-30) mmol/L Glucose (74-99) mg/dL Alkaline Phosphatase (38-126) U/L Troponin I (0.000-0.034) ng/mL Thrombosis Risk Factor Assmnt - Choose All That Apply Any of the Below Risk Factors Present?: Yes Each Factor Represents 1 point: Obesity (BMI >25) Other Risk Factors: Yes Each Risk Factor Represents 3 Points: Age 75 years or older Other congenital or acquired thrombophilia - If yes, enter type in comment: Yes Each Risk Factor Represents 5 Points: Major surgery lasting over 3 hours Thrombosis Risk Factor Assessment Total Risk Factor Score: 9 Thrombosis Risk Factor Assessment Level: High Risk
[2022-07-13] MEDS: AMIODARONE 200 MG TAB PO SCH (17:17)
[2022-07-13] MEDS ORDERED: WARFARIN 0.5 MG TAB PO ONE (18:00)
[2022-07-14] MEDS: AMIODARONE 200 MG TAB PO SCH (08:07)
[2022-07-14] MEDS: NAPROXEN 250 MG TAB PO SCH (08:07)
[2022-07-14] MEDS: CHOLECALCIFEROL 125 MCG (5000 IU) TABLET PO SCH (08:07)
[2022-07-14] MEDS: MAGNESIUM OXIDE 400 MG TAB PO SCH (08:07)
[2022-07-14] MEDS: METOPROLOL SUCCINATE (ER) 25 MG TAB.ER.24H PO SCH (08:07)
[2022-07-14] MEDS: ZINC SULFATE 220 MG CAP PO SCH (08:07)
[2022-07-14 08:10] VITALS: RESP 16; TEMP 97.5
[2022-07-14 08:33] LABS: INR 2.4 (<1.2); Prothrombin Time 23.8 sec (9.0-12.0)
[2022-07-14 11:59] VITALS: BP 134/54; PULSE 96
--- NOTE | 2022-07-14 13:08 | P.PN ---
Subjective Progress Note Date: 07/14/22 Patient seen today resting comfortably in bed in no signs of acute distress. He continues on by mouth amiodarone. With activity heart rate jumps up to 130. Will increase Toprol to 50 mg daily. Will follow-up in the office in 2 weeks. If he remains in atrial fibrillation at that time patient will need an outpatient cardioversion. Continue on Eliquis Objective - Vital Signs Vital signs: Vital Signs Temp 97.5 F L 07/14/22 08:00 Pulse 96 07/14/22 11:58 Resp 16 07/14/22 11:58 BP 134/54 07/14/22 11:58 Pulse Ox 96 07/14/22 11:58 FiO2 Intake & Output 07/13/22 07/14/22 07/14/22 18:59 06:59 18:59 Intake Total 720 180 Balance 720 180 Intake: Oral 720 180 Other: # Voids 1 - Exam PHYSICAL EXAM: VITAL SIGNS: Reviewed. GENERAL: Well-developed in no acute distress. HEENT: Head is normocephalic. Pupils are equal, round. Sclerae anicteric. Mucous membranes of the mouth are moist. NECK: Supple. No JVD or thyromegaly RESPIRATORY: Respirations even and unlabored. Lungs diminished to auscultation bilaterally. CARDIO: IrRegular rate and rhythm. S1 and S2 heard. No murmur or gallops. EXTREMITIES: Normal range of motion. No clubbing or cyanosis. Peripheral pulses intact. Negative for bilateral lower extremity edema NEURO: Orientated to person, time, mood is appropriate - Labs CBC & Chem 7: 07/12/22 18:21 07/13/22 08:51 Labs: Abnormal Lab Results - Last 24 Hours (Table) 07/14/22 Range/Units 07:09 PT 23.8 H (9.0-12.0) sec INR 2.4 H (<1.2) Assessment and Plan Assessment: Persistent atrial fibrillation status post aortic valve replacement Plan: Increase Toprol to 50 mg daily Continue with oral anticoagulation Coumadin Continue with amiodarone 200 mg twice a day Obtained and reviewed 2-D echocardiogram Continue with current cardiac medications Patient is clear for for discharge. Patient is to follow-up in the office in 2 weeks. Further recommendations based on clinical course The above impression and plan of care have been discussed and directed by the signing physician. Rachele Craven, nurse practitioner, acting as scribe for signing physician.
[2022-07-14] MEDS ORDERED: METOPROLOL SUCCINATE (ER) 25 MG TAB.ER.24H PO STA (13:11)
--- NOTE | 2022-07-14 13:44 | P.DS ---
Providers Date of admission: 07/12/22 20:02 Attending physician: Selin Llanes Consults: 07/12/22 20:02 Consult Physician Routine Consulting Provider: Jimenez Justin Consult Reason/Comments: afib rvr Do you want consulting provider notified?: Yes Primary care physician: [facility] Course: 72-year-old male with a history of valvular atrial fibrillation came in with the complaints of dizziness and lightheadedness found to be negative fibrillation with rapid Rate patient uses usually takes 25 mg of extended release metoprolol. Usually takes 4 mg of Coumadin. Patient was started on amiodarone drip patient. INR is therapeutic on admission but went up to 3.5 now. Patient is clinically doing well cardiology evaluated the patient and recommended monitoring for 24 hours. 07/14/2022 Patient is a clinical stable cleared for discharge patient will be discharged on amiodarone patient will get his INR checked in 2 days patient's wasn't is around 2.4. PHYSICAL EXAMINATION: GENERAL: The patient is alert and oriented x3, not in any acute distress. Well developed, well nourished. HEENT: Pupils are round and equally reacting to light. EOMI. No scleral icterus. No conjunctival pallor. Normocephalic, atraumatic. No pharyngeal erythema. No thyromegaly. CARDIOVASCULAR: S1 and S2 present. No murmurs, rubs, or gallops. PULMONARY: Chest is clear to auscultation, no wheezing or crackles. ABDOMEN: Soft, nontender, nondistended, normoactive bowel sounds. No palpable organomegaly. MUSCULOSKELETAL: No joint swelling or deformity. EXTREMITIES: No cyanosis, clubbing, or pedal edema. NEUROLOGICAL: Gross neurological examination did not reveal any focal deficits. SKIN: No rashes. Assessment and plan -Atrial fibrillation with rapid ventricular rate, amiodarone was added to his re gimen and patient is also on Toprol-XL. patient is on Coumadin for valvular atrial fibrillation -Hyperlipidemia -Benign prostatic hypertrophy, history of valve replacement aortic valve -Mild hyperchloremic metabolic acidosis Patient Condition at Discharge: Fair Plan - Discharge Summary Discharge Rx Participant: No New Discharge Prescriptions: New Amiodarone [Cordarone] 200 mg PO BID #60 tab Continue Naproxen Sodium [Aleve] 440 mg PO DAILY Warfarin Sodium 5 mg PO DAILY Metoprolol Succinate (ER) [Toprol XL] 25 mg PO DAILY #0 Cholecalciferol [Vitamin D3 (125 Mcg = 5000 Iu)] 125 mcg PO DAILY Magnesium 250 mg PO DAILY Potassium Gluconate [Potassium Gluconate ER] 99 mg PO DAILY Discontinued Zinc Sulfate 50 mg PO DAILY Discharge Medication List Naproxen Sodium [Aleve] 440 mg PO DAILY 11/29/15 [History] Warfarin Sodium 5 mg PO DAILY 02/22/20 [History] Metoprolol Succinate (ER) [Toprol XL] 25 mg PO DAILY #0 01/15/21 [Rx] Cholecalciferol [Vitamin D3 (125 Mcg = 5000 Iu)] 125 mcg PO DAILY 06/20/21 [His tory] Magnesium 250 mg PO DAILY 07/12/22 [History] Potassium Gluconate [Potassium Gluconate ER] 99 mg PO DAILY 07/12/22 [History] Amiodarone [Cordarone] 200 mg PO BID #60 tab 07/14/22 [Rx] Follow up Appointment(s)/Referral(s): Kim Luna III, MD [Primary Care Provider] - 3 Days Jimenez Justin MD [STAFF PHYSICIAN] - 1 Week Ambulatory/Diagnostic Orders: Prothrombin Time INR [LAB.AMB] Time Frame: 3 Days, Location: None Selected Patient Instructions/Handouts: A-fib (Atrial Fibrillation) (DC) Discharge Disposition: HOME SELF-CARE
[2022-07-14] MEDS ORDERED: WARFARIN 5 MG TAB PO ONE (18:00)
[2022-07-15] MEDS ORDERED: METOPROLOL SUCCINATE (ER) 50 MG TAB.ER.24H PO SCH (09:00)
== END 2022-07-14 13:23 | disposition home or self-care (01) | DRG 309 ==
LOC: EC 17:30 → 3SCARD 20:02
PROVIDERS: ADMIT Hospitalist; ATTEND Hospitalist
DX: I48.19 Other persistent atrial fibrillation (principal); E87.20 Acidosis, unspecified; I48.92 Unspecified atrial flutter; E87.8 Other disorders of electrolyte and fluid balance, not elsewhere classified; E78.5 Hyperlipidemia, unspecified; M19.90 Unspecified osteoarthritis, unspecified site; G43.909 Migraine, unspecified, not intractable, without status migrainosus; R00.0 Tachycardia, unspecified; R55 Syncope and collapse; N40.0 Benign prostatic hyperplasia without lower urinary tract symptoms; Z79.01 Long term (current) use of anticoagulants; Z79.899 Other long term (current) drug therapy; Z85.820 Personal history of malignant melanoma of skin; Z85.46 Personal history of malignant neoplasm of prostate; Z95.2 Presence of prosthetic heart valve
CPT/HCPCS: 36415; 71046; 80048; 80053; 83735; 84484; 85025; 85610; 85730; 93005; 94760; 96365; 99285

== ENCOUNTER 2022-11-22 12:10 | Emergency (ER) | payer MEDICARE, OTHER ==
[2022-11-22 12:15] VITALS: TEMP 97.9
[2022-11-22 12:22] VITALS: RESP 18
[2022-11-22] MEDS ORDERED: ONDANSETRON 4 MG/2 ML VIAL IVP STA ×2 (12:36→18:31)
[2022-11-22] MEDS ORDERED: SODIUM CHLORIDE 0.9% 1,000 ML IV STA ×2 (12:36→14:57)
[2022-11-22] MEDS ORDERED: PANTOPRAZOLE 40 MG/10 ML VIAL IVP STA (12:36)
--- NOTE | 2022-11-22 12:42 | ED ---
General Adult HPI - General Chief complaint: Nausea/Vomiting/Diarrhea Stated complaint: Vomiting Time Seen by Provider: 11/22/22 12:20 Source: patient, RN notes reviewed, old records reviewed Mode of arrival: ambulatory Limitations: no limitations - History of Present Illness Initial comments: Patient is a 77-year-old male who presents emergency Department complaining of approximately 11 hours of intermittent nausea, vomiting, diarrhea. Denies any significant abdominal discomfort with it. States it started approximately 3 AM this morning. Is having nonbilious nonbloody emesis multiple times as well as multiple episodes of nonbloody diarrhea. States it looks like the pak soup he ate last night. No one else ate the same thing. Pak soup was old from the freezer. Denies any chest pain, shortness of breath. Denies any urinary complaints. He is on Coumadin for atrial fibrillation. No history of abdominal surgeries. Was feeling fine until early this morning when the symptoms began. Presents for further evaluation at this time. - Related Data Home Medications Medication Instructions Recorded Confirmed Naproxen Sodium [Aleve] 440 mg PO BID-W/MEALS 11/29/15 11/22/22 Warfarin Sodium 5 mg PO MOWEFR@1700 02/22/20 11/22/22 Warfarin [Coumadin] 2.5 mg PO SUTUTHSA@1700 08/01/22 11/22/22 Previous Rx's Medication Instructions Recorded Metoprolol Succinate (ER) [Toprol 25 mg PO DAILY #0 01/15/21 XL] Ondansetron Odt [Zofran Odt] 4 mg PO Q8HR PRN 3 Days #9 tab 11/22/22 Allergies Allergy/AdvReac Type Severity Reaction Status Date / Time No Known Allergies Allergy Verified 11/22/22 14:48 Review of Systems ROS Statement: Those systems with pertinent positive or pertinent negative responses have been documented in the HPI. Review of Systems: CONST: Denies fever EYES: Denies blurry vision ENT: Denies nasal congestion C/V: Denies Chest pain RESP: Denies shortness of breath GI: Endorses nausea, vomiting, diarrhea : Denies dysuria SKIN: Denies rash. MSK: Denies joint pain. NEURO: Denies headache ROS Other: All systems not noted in ROS Statement are negative. Past Medical History Past Medical History: Atrial Fibrillation, Cancer, Hyperlipidemia, Osteoarthritis (OA), Prostate Disorder Additional Past Medical History / Comment(s): migraines (resolved after covid 2020)., prostate cancer with surgery (?2006)., hx melanoma., states told difficult intubation with his back surgery., See Cardiology [facility]. History of Any Multi-Drug Resistant Organisms: None Reported Past Surgical History: Adenoidectomy, Back Surgery, Cardiac Valve Replacement, Prostate Surgery Additional Past Surgical History / Comment(s): aortic valve replacement (2002), precancer lesions removed hands & forehead, melanoma removed arm, cardioversion., cataracts Past Anesthesia/Blood Transfusion Reactions: No Reported Reaction Additional Past Anesthesia/Blood Transfusion Reaction / Comment(s): states he was told difficult intubation with his back surgery- pt states he received a letter which he will try to find. Past Psychological History: No Psychological Hx Reported Smoking Status: Former smoker Past Alcohol Use History: Occasional Past Drug Use History: None Reported - Past Family History Father Family Medical History: Cancer Additional Family Medical History / Comment(s): throat cancer Mother Family Medical History: Congestive Heart Failure (CHF) Additional Family Medical History / Comment(s): Mother of Heart Failure at 80 Brother(s) Family Medical History: Cancer Additional Family Medical History / Comment(s): stomach cancer General Exam - General Exam Comments Initial Comments: General: Appears in no acute distress. HEAD: Normal with no signs of head trauma. EYES: PERRLA, EOMI, conjunctiva normal, no discharge. ENT: Hearing grossly intact, normal oropharynx. Mildly dry mucous membranes. RESPIRATORY: Clear breath sounds bilaterally. No wheezes, rales, or rhonchi. C/V: Regular rate and rhythm. S1 and S2 auscultated, no edema, peripheral pulses 2+ and intact throughout ABD: Abd is soft, nontender, nondistended. No guarding. No rebound tenderness . No peritoneal signs. EXT: Normal range of motion, no obvious deformity SKIN: No rashes or lesions observed on exposed skin. NEURO: Alert and oriented 4. Limitations: no limitations Course Vital Signs 11/22/22 11/22/22 11/22/22 12:13 12:20 13:24 Temperature 97.9 F Pulse Rate 91 69 61 Respiratory 16 18 18 Rate Blood Pressure 125/80 128/55 107/57 O2 Sat by Pulse 96 98 96 Oximetry 11/22/22 11/22/22 11/22/22 14:27 15:36 15:39 Temperature Pulse Rate 66 73 73 Respiratory 18 18 Rate Blood Pressure 121/99 120/55 O2 Sat by Pulse 93 L 95 Oximetry 11/22/22 11/22/22 11/22/22 15:56 17:03 19:27 Temperature Pulse Rate 82 84 72 Respiratory 18 18 Rate Blood Pressure 126/74 102/58 O2 Sat by Pulse 94 L 98 Oximetry Medical Decision Making - Medical Decision Making Was pt. sent in by a medical professional or institution (, PA, INK MAKER, urgent care, hospital, or long-term...) When possible be specific @ -No Did you speak to anyone other than the patient for history (EMS, parent, family, police, friend...)? What history was obtained from this source @ -No Did you review nursing and triage notes (agree or disagree)? Why? @ -I reviewed and agree with nursing and triage notes Were old charts reviewed (outside hosp., previous admission, EMS record, old EKG, old radiological studies, urgent care reports/EKG's, long-term records)? Report findings @ -Charts reviewed from recent admission and July 22 Differential Diagnosis (chest pain, altered mental status, abdominal pain women, abdominal pain men, vaginal bleeding, weakness, fever, dyspnea, syncope, headache, dizziness, GI bleed, back pain, seizure, CVA, palpatations, mental health, musculoskeletal)? @ -Differential Abdominal Pain Men: Appendicitis, cholecystitis, diverticulosis, ischemic bowel, pancreatitis, hepatitis, UTI, gastroenteritis, AAA, incarcerated hernia, bowel obstruction, constipation, inflammatory bowel, hepatitis, peptic ulcer disease, splenic infarction, perforated viscus, testicular torsion, this is not meant to be an all-inclusive list EKG interpreted by me (3pts min.). @ -As above X-rays interpreted by me (1pt min.). @ -Chest x-ray shows no obvious acute cardio pulmonary process. CT interpreted by me (1pt min.). @ -CT abdomen and pelvis reveals no obvious acute intra-abdominal process except for enteritis. U/S interpreted by me (1pt. min.). @ -None done What testing was considered but not performed or refused? (CT, X-rays, U/S, labs)? Why? @ -None What meds were considered but not given or refused? Why? @ -I offered the patient analgesia medications which were declined. Did you discuss the management of the patient with other professionals ( professionals i.e. , PA, INK MAKER, lab, RT, psych nurse, health social work professor, ethyl blender, teacher, safety officer, porter sample case)? Give summary @ -No Was smoking cessation discussed for >3mins.? @ -No Was critical care preformed (if so, how long)? @ -yes, 35 min Were there social determinants of health that impacted care today? How? (Homelessness, low income, unemployed, alcoholism, drug addiction, transportation, low edu. Level, literacy, decrease access to med. care, fci, rehab)? @ -No Was there de-escalation of care discussed even if they declined (Discuss DNR or withdrawal of care, Hospice)? DNR status @ -No What co-morbidities impacted this encounter? (DM, HTN, Smoking, COPD, CAD, Cancer, CVA, ARF, Chemo, Hep., AIDS, mental health diagnosis, sleep apnea, morbid obesity)? @ -None Was patient admitted / discharged? Hospital course, mention meds given and route, prescriptions, significant lab abnormalities, going to OR and other pertinent info. @ -Based on the patient's presentation and physical exam, I'm concerned for acute intra-abdominal process for the patient's current symptoms. Cannot rule out atypical ACS presentation. Recommended that we obtain cardiac labs in addition to abdominal labs, chest x-ray, CT abdomen and pelvis as well as skin EKG. He was in agreement this plan. Vital signs within acceptable limits. Patient will be symptomatically treated with a 1 L fluid bolus, IV Protonix and Zofran. Patient's imaging is remarkable for arthritis. EKG shows no signs of acute ischemia. Labs are remarkable for undetectable troponin. Vital signs within acceptable limits. Patient has CK D. Patient has acute hyperkalemia 5.6. Likely related to his multiple episodes of nausea, vomiting, diarrhea. On reevaluation, patient is feeling much improved. He is tolerating oral intake. I discussed results with him. I did offer him admission for his hyperkalemia but he would prefer to go home. Therefore we will attempt to treat his hyperkalemia here in the department. He was in agreement that if unsuccessful, he will be admitted. I will provide him with additional IV fluids, as well as the hyperkalemia cocktail in addition to oral lokelma. He'll also receive a dose of Lasix.. Patient was in agreement with this plan. After multiple hours of observation, patient's potassium did decrease to 4.7. Remains feeling improved and would like to go home at this time. I believe this is reasonable with strict return precautions. I will provide him with a paper prescription for a blood draw next week as well as strict return precautions and strict instructions to follow-up with his physician next week for follow-up. He was in agreement this plan. He will return if he has more episodes of nausea, vomiting, diarrhea home. He has not had any since arrival. Discussed good fluid hydration. He was in agreement this plan. I will provide the patient with a prescription for Zofran. I instructed the patient to follow up with their PCP in the next 1-3 days. I explained that the patient should return to the emergency department if they experience any worsening symptoms. Strict return precautions were discussed with the patient. The patient expressed understanding of these instructions. I answered all questions that the patient had. The patient was discharged home in good condition with their prescriptions and follow up information. Undiagnosed new problem with uncertain prognosis? @ -No Drug Therapy requiring intensive monitoring for toxicity (Heparin, Nitro, Insulin, Cardizem)? @ -No Were any procedures done? @ -No Diagnosis/symptom? @ -Enteritis resulting in nausea, vomiting, diarrhea and hyperkalemia. Dehydration. Acute, or Chronic, or Acute on Chronic? @ -Acute Uncomplicated (without systemic symptoms) or Complicated (systemic symptoms)? @ -Complicated Side effects of treatment? @ -none Exacerbation, Progression, or Severe Exacerbation] @ -no Poses a threat to life or bodily function? @ -If Hyperkalemia persists, can be life-threatening. - Lab Data Result diagrams: 11/22/22 12:41 11/22/22 17:41 Lab Results 11/22/22 11/22/22 11/22/22 Range/Units 12:41 12:41 12:41 WBC 8.3 (3.8-10.6) k/uL RBC 5.05 (4.30-5.90) m/uL Hgb 15.7 (13.0-17.5) gm/dL Hct 48.2 (39.0-53.0) % MCV 95.3 (80.0-100.0) fL MCH 31.0 (25.0-35.0) pg MCHC 32.5 (31.0-37.0) g/dL RDW 14.7 (11.5-15.5) % Plt Count 166 (150-450) k/uL MPV 7.3 Neutrophils % 91 % Lymphocytes % 3 % Monocytes % 5 % Eosinophils % 1 % Basophils % 0 % Neutrophils # 7.5 (1.3-7.7) k/uL Lymphocytes # 0.3 L (1.0-4.8) k/uL Monocytes # 0.4 (0-1.0) k/uL Eosinophils # 0.1 (0-0.7) k/uL Basophils # 0.0 (0-0.2) k/uL PT 18.4 H (9.0-12.0) sec INR 1.9 H (<1.2) APTT 33.3 H (22.0-30.0) sec Sodium (137-145) mmol/L Potassium (3.5-5.1) mmol/L Chloride (98-107) mmol/L Carbon Dioxide (22-30) mmol/L Anion Gap mmol/L BUN (9-20) mg/dL Creatinine (0.66-1.25) mg/dL Est GFR (CKD-EPI)AfAm (>60 ml/min/1.73 sqM) Est GFR (CKD-EPI)NonAf (>60 ml/min/1.73 sqM) Glucose (74-99) mg/dL Plasma Lactic Acid Davion (0.7-2.0) mmol/L Calcium (8.4-10.2) mg/dL Total Bilirubin (0.2-1.3) mg/dL AST (17-59) U/L ALT (4-49) U/L Alkaline Phosphatase (38-126) U/L Troponin I (0.000-0.034) ng/mL Total Protein (6.3-8.2) g/dL Albumin (3.5-5.0) g/dL Amylase (30-110) U/L Lipase (23-300) U/L Urine Color Light Yellow Urine Appearance Clear (Clear) Urine pH 5.0 (5.0-8.0) Ur Specific [place] 1.027 (1.001-1.035) Urine Protein Negative (Negative) Urine Glucose (UA) 1+ H (Negative) Urine Ketones Negative (Negative) Urine Blood Negative (Negative) Urine Nitrite Negative (Negative) Urine Bilirubin Negative (Negative) Urine Urobilinogen <2.0 (<2.0) mg/dL Ur Leukocyte Esterase Negative (Negative) Influenza Type A (PCR) (Not Detectd) Influenza Type B (PCR) (Not Detectd) RSV (PCR) (Not Detectd) SARS-CoV-2 (PCR) (Not Detectd) 11/22/22 11/22/22 11/22/22 Range/Units 12:41 12:41 12:41 WBC (3.8-10.6) k/uL RBC (4.30-5.90) m/uL Hgb (13.0-17.5) gm/dL Hct (39.0-53.0) % MCV (80.0-100.0) fL MCH (25.0-35.0) pg MCHC (31.0-37.0) g/dL RDW (11.5-15.5) % Plt Count (150-450) k/uL MPV Neutrophils % % Lymphocytes % % Monocytes % % Eosinophils % % Basophils % % Neutrophils # (1.3-7.7) k/uL Lymphocytes # (1.0-4.8) k/uL Monocytes # (0-1.0) k/uL Eosinophils # (0-0.7) k/uL Basophils # (0-0.2) k/uL PT (9.0-12.0) sec INR (<1.2) APTT (22.0-30.0) sec Sodium 145 (137-145) mmol/L Potassium 5.4 H (3.5-5.1) mmol/L Chloride 106 (98-107) mmol/L Carbon Dioxide 27 (22-30) mmol/L Anion Gap 12 mmol/L BUN 26 H (9-20) mg/dL Creatinine 1.08 (0.66-1.25) mg/dL Est GFR (CKD-EPI)AfAm 77 (>60 ml/min/1.73 sqM) Est GFR (CKD-EPI)NonAf 67 (>60 ml/min/1.73 sqM) Glucose 125 H (74-99) mg/dL Plasma Lactic Acid Dav[place] 1.7 (0.7-2.0) mmol/L Calcium 8.9 (8.4-10.2) mg/dL Total Bilirubin 0.8 (0.2-1.3) mg/dL AST 45 (17-59) U/L ALT 38 (4-49) U/L Alkaline Phosphatase 31 L (38-126) U/L Troponin I <0.012 (0.000-0.034) ng/mL Total Protein 7.7 (6.3-8.2) g/dL Albumin 4.8 (3.5-5.0) g/dL Amylase 99 (30-110) U/L Lipase 200 (23-300) U/L Urine Color Urine Appearance (Clear) Urine pH (5.0-8.0) Ur Specific [place] (1.001-1.035) Urine Protein (Negative) Urine Glucose (UA) (Negative) Urine Ketones (Negative) Urine Blood (Negative) Urine Nitrite (Negative) Urine Bilirubin (Negative) Urine Urobilinogen (<2.0) mg/dL Ur Leukocyte Esterase (Negative) Influenza Type A (PCR) (Not Detectd) Influenza Type B (PCR) (Not Detectd) RSV (PCR) (Not Detectd) SARS-CoV-2 (PCR) (Not Detectd) 11/22/22 11/22/22 11/22/22 Range/Units 12:41 13:57 17:41 WBC (3.8-10.6) k/uL RBC (4.30-5.90) m/uL Hgb (13.0-17.5) gm/dL Hct (39.0-53.0) % MCV (80.0-100.0) fL MCH (25.0-35.0) pg MCHC (31.0-37.0) g/dL RDW (11.5-15.5) % Plt Count (150-450) k/uL MPV Neutrophils % % Lymphocytes % % Monocytes % % Eosinophils % % Basophils % % Neutrophils # (1.3-7.7) k/uL Lymphocytes # (1.0-4.8) k/uL Monocytes # (0-1.0) k/uL Eosinophils # (0-0.7) k/uL Basophils # (0-0.2) k/uL PT (9.0-12.0) sec INR (<1.2) APTT (22.0-30.0) sec Sodium (137-145) mmol/L Potassium 5.6 H 4.7 (3.5-5.1) mmol/L Chloride (98-107) mmol/L Carbon Dioxide (22-30) mmol/L Anion Gap mmol/L BUN (9-20) mg/dL Creatinine (0.66-1.25) mg/dL Est GFR (CKD-EPI)AfAm (>60 ml/min/1.73 sqM) Est GFR (CKD-EPI)NonAf (>60 ml/min/1.73 sqM) Glucose (74-99) mg/dL Plasma Lactic Acid Dav[place] (0.7-2.0) mmol/L Calcium (8.4-10.2) mg/dL Total Bilirubin (0.2-1.3) mg/dL AST (17-59) U/L ALT (4-49) U/L Alkaline Phosphatase (38-126) U/L Troponin I (0.000-0.034) ng/mL Total Protein (6.3-8.2) g/dL Albumin (3.5-5.0) g/dL Amylase (30-110) U/L Lipase (23-300) U/L Urine Color Urine Appearance (Clear) Urine pH (5.0-8.0) Ur Specific [place] (1.001-1.035) Urine Protein (Negative) Urine Glucose (UA) (Negative) Urine Ketones (Negative) Urine Blood (Negative) Urine Nitrite (Negative) Urine Bilirubin (Negative) Urine Urobilinogen (<2.0) mg/dL Ur Leukocyte Esterase (Negative) Influenza Type A (PCR) Not Detected (Not Detectd) Influenza Type B (PCR) Not Detected (Not Detectd) RSV (PCR) Not Detected (Not Detectd) SARS-CoV-2 (PCR) Not Detected (Not Detectd) - EKG Data -: EKG Interpreted by Me EKG Comments: 12-lead Electrocardiogram Interpretation Note EKG was reviewed and interpreted by myself. 12-lead ECG performed at 1249 is interpreted by me as revealing normal sinus rhythm at a rate of 66 beats per minute. Left axis deviation. CA interval is 173 ms, QRS duration is 100 ms, QTc is 398 ms.. There were no ST or T wave abnormalities to suggest myocardial ischemia or injury. R wave progression across the precordium was delayed. By my interpretation this EKG is non-diagnostic for acute ischemia. When compared with EKG from 08/06/2022, no significant change. Critical Care Time Critical Care Time: Yes Total Critical Care Time: 35 Disposition Clinical Impression: Hyperkalemia, Nausea and vomiting, Diarrhea, Enteritis, Dehydration Disposition: HOME SELF-CARE Condition: Good Instructions (If sedation given, give patient instructions): Acute Nausea and Vomiting (ED), Acute Diarrhea (ED) Additional Instructions: OBtain repeat labs next week and follow up with PCP to monitor potassium Prescriptions: Ondansetron Odt [Zofran Odt] 4 mg PO Q8HR PRN 3 Days #9 tab PRN Reason: Nausea Is patient prescribed a controlled substance at d/c from ED?: No Referrals: Kim Luna III, MD [Primary Care Provider] - 1-2 days Time of Disposition: 19:00
[2022-11-22 12:51] LABS: Basophils % (A) 0 %; Eosinophils # (A) 0.1 k/uL (0-0.7); Eosinophils % (A) 1 %; HCT 48.2 % (39.0-53.0); HGB 15.7 gm/dL (13.0-17.5); Lymphocytes # (A) 0.3 k/uL (1.0-4.8); Lymphocytes % (A) 3 %; MCHC 32.5 g/dL (31.0-37.0); MCV 95.3 fL (80.0-100.0); Mean Platelet Volume 7.3; Monocytes # (A) 0.4 k/uL (0-1.0); Monocytes % (A) 5 %; Neutrophils # (A) 7.5 k/uL (1.3-7.7); Neutrophils % (A) 91 %; Platelet Count 166 k/uL (150-450); RBC 5.05 m/uL (4.30-5.90); RDW 14.7 % (11.5-15.5); WBC 8.3 k/uL (3.8-10.6)
[2022-11-22 13:03] LABS: Albumin 4.8 g/dL (3.5-5.0); Calcium 8.9 mg/dL (8.4-10.2); Potassium 5.4 mmol/L (3.5-5.1); Total Bilirubin 0.8 mg/dL (0.2-1.3); Total Protein 7.7 g/dL (6.3-8.2)
[2022-11-22 13:13] LABS: INR 1.9 (<1.2); Partial Thromboplastin Time 33.3 sec (22.0-30.0); Prothrombin Time 18.4 sec (9.0-12.0)
--- NOTE | 2022-11-22 13:14 | XR ---
EXAMINATION TYPE: XR chest 1V portable DATE OF EXAM: 11/22/2022 Comparison: 07/12/2022 Clinical History: 77-year-old male with diarrhea, nausea, abdominal pain Findings: Median sternotomy wires are present with prosthetic aortic valve. Heart upper limits of normal in siz e. Aorta and pulmonary vasculature within normal limits. No consolidation or pleural effusion. Impression: No acute cardiopulmonary process.
--- NOTE | 2022-11-22 14:10 | CT ---
EXAMINATION TYPE: CT abdomen pelvis w con DATE OF EXAM: 11/22/2022 COMPARISON: 12/11/2019 HISTORY: Abdominal pain with n, vd, d x [address] DLP: 1149 mGycm CONTRAST: CT scan of the abdomen and pelvis is performed without Oral Contrast and with IV Contrast, patient in jected with 100 ml mL of Isovue 300. FINDINGS: LUNG BASES-: No visible nodule. No infiltrate. LIVER/GB: No calcified gallstones. No space occupying hepatic lesion. Biliary tree is of normal ca liber. A couple of small subcentimeter hepatic cysts are noted. PANCREAS: No inflammation. No distinct mass. SPLEEN: No splenic enlargement. No lesion seen. ADRENALS: No nodule. No thickening. KIDNEYS/BLADDER: No hydronephrosis. No nephrolithiasis. No distinct renal mass. Urinary bladder g rossly unremarkable. BOWEL: Normal appendix. Normal bowel caliber mild small bowel wall thickening could reflect enteriti s. Correlate clinically. Sigmoid diverticulosis without diverticulitis. GENITAL ORGANS: Changes of previous prostatectomy. LYMPH NODES: No greater than 1cm abdominal or pelvic lymph nodes are appreciated. AORTA: No significant abnormality. OSSEOUS STRUCTURES: Lumbar degenerative and postoperative changes. OTHER: No significant additional abnormality is seen. IMPRESSION: 1. Correlation for enteritis.
[2022-11-22] MEDS ORDERED: SODIUM ZIRCONIUM CYCLOSILICATE 10 GM PACKET PO ONE ×2 (14:58→19:06)
[2022-11-22] MEDS ORDERED: INSULIN REGULAR 100 UNIT/ML VIAL (IV) IV ONE (15:20)
[2022-11-22] MEDS ORDERED: SODIUM CHLORIDE 0.9% 500 ML 500 ML IV STA (15:20)
[2022-11-22] MEDS ORDERED: DEXTROSE 50% SYRINGE 50 ML IVP ONE (15:20)
[2022-11-22] MEDS ORDERED: ALBUTEROL NEB (CONC) 2.5 MG/0.5 ML INHALATION ONE (15:20)
[2022-11-22] MEDS ORDERED: FUROSEMIDE 10 MG/ML 2 ML VIAL IV ONE (15:21)
[2022-11-22 16:13] LABS: Appearance,Urine Clear (Clear); Bilirubin,Urine Negative (Negative); Blood,Urine Negative (Negative); Color,Urine Light Yellow; Glucose,Urine (UA) 1+ (Negative); Ketones,Urine Negative (Negative); Leukocyte Esterase,Urine Negative (Negative); Nitrite,Urine Negative (Negative); Protein,Urine Negative (Negative); Specific Gravity,Urine 1.027 (1.001-1.035); Urobilinogen,Urine <2.0 mg/dL (<2.0)
[2022-11-22] MEDS ORDERED: SUMAtriptan succinate 50 MG TAB PO STA (18:38)
[2022-11-22 19:27] VITALS: BP 102/58; PULSE 72
== END 2022-11-22 19:35 | disposition home or self-care (01) ==
LOC: EC 12:10
DX: E87.5 Hyperkalemia (principal); R11.2 Nausea with vomiting, unspecified; K52.9 Noninfective gastroenteritis and colitis, unspecified; E86.0 Dehydration; I48.91 Unspecified atrial fibrillation; Z20.822 Contact with and (suspected) exposure to COVID-19; Z87.891 Personal history of nicotine dependence; Z79.01 Long term (current) use of anticoagulants
CPT/HCPCS: 36415; 94640; 93005; 80053; 82150; 83605; 83690; 84132; 84484; 85025; 85610; 85730; 81003; 87636; 71045; 74177; 99291; 96374; 96375 ×3; 96376; 96361 ×6; J1940; J2405; C9113; Q9967

== ENCOUNTER 2023-05-05 07:34 | Day surgery (SDC) | payer MEDICARE, OTHER ==
[2023-05-02 10:16] VITALS: BMI 29.7
[2023-05-05] MEDS ORDERED: LACTATED RINGERS 1,000 ML IV SCH (07:56)
[2023-05-05 08:36] VITALS: TEMP 97.6
[2023-05-05 08:50] LABS: INR 2.1 (<1.2); Prothrombin Time 20.6 sec (10.0-12.5)
[2023-05-05 08:55] LABS: African American GFR (CKD) 72 (>60 ml/min/1.73 sqM); Anion Gap 9 mmol/L; Blood Urea Nitrogen 21 mg/dL (9-20); Calcium 9.3 mg/dL (8.4-10.2); Carbon Dioxide 24 mmol/L (22-30); Chloride 106 mmol/L (98-107); Glucose 100 mg/dL (74-99); Non-African American GFR(CKD) 63 (>60 ml/min/1.73 sqM); Sodium 139 mmol/L (137-145)
[2023-05-05] MEDS ORDERED: PROPOFOL 10 MG/ML 20 ML VIAL IV ONE (08:58)
[2023-05-05 09:01] LABS: Potassium 5.1 mmol/L (3.5-5.1)
[2023-05-05] MEDS ORDERED: BENZOCAINE SPRAY 1 CAN TOPICAL ONE (09:07)
[2023-05-05 10:10] VITALS: BP 101/69; PULSE 61; RESP 16
--- NOTE | 2023-05-05 21:19 | ECHOT ---
TRANSESOPHAGEAL ECHOCARDIOGRAM TRANSESOPHAGEAL ECHOCARDIOGRAM: INDICATION: To rule out intracardiac thrombus prior to cardioversion. PROCEDURE NOTE: After obtaining informed consent, transesophageal echocardiogram was performed in left lateral position using an Omniplane probe. Local and IV sedation were obtained by the shuttle bus driver. The patient tolerated the procedure well without any obvious immediate complications. FINDINGS: 1. There is no thrombus within the left atrial appendage, left atrium, right atrium, right ventricle, or left ventricle. 2. Left atrium appears enlarged. 3. Right atrium and right ventricle seen within normal limits. 4. Left ventricle has normal size and systolic function. 5. Mitral valve is anatomically normal. There is [id number] central mitral regurgitation noted. There is mild tricuspid regurgitation noted. 6. There is no evidence of gflg-[id number] shunt by color-flow Doppler or nomae-tj-whsa shunt by agitated saline contrast study. 7. There is a bioprosthetic valve in aortic position that seems to be functioning normally. 8. Left ventricular systolic function appears normal. CONCLUSIONS: No intracardiac thrombus. PLAN: The patient will undergo cardioversion. CARDIOVERSION NOTE: INDICATION: Persistent atrial fibrillation. PROCEDURE NOTE: The patient underwent cardioversion with 150 joules of synchronized DC current and converted to sinus rhythm following a single shock. He is on Multaq for rhythm suppression, and a CAROL was performed to rule out intracardiac thrombus. The patient is adequately anticoagulated with Coumadin with an INR of 2.1. MMODL / IJN: [id number] /
== END 2023-05-05 10:15 | disposition home or self-care (01) ==
LOC: OR 07:34
PROVIDERS: ATTEND Internal Medicine Cardiovascular Disease
DX: I08.2 Rheumatic disorders of both aortic and tricuspid valves (principal); I48.0 Paroxysmal atrial fibrillation; E78.5 Hyperlipidemia, unspecified; M19.90 Unspecified osteoarthritis, unspecified site; F12.90 Cannabis use, unspecified, uncomplicated; Z85.820 Personal history of malignant melanoma of skin; Z85.46 Personal history of malignant neoplasm of prostate; Z79.899 Other long term (current) drug therapy
CPT/HCPCS: 93312; 93320; 93325; 92960; 80048; 85610; J2704

== ENCOUNTER → 2024-06-22 | Outpatient (CLI) | payer MEDICARE, OTHER ==
--- NOTE | 2024-06-22 09:12 | XR ---
EXAMINATION TYPE: XR chest 2V DATE OF EXAM: 06/22/2024 COMPARISON: NONE CLINICAL INDICATION: Male, 79 years old with history of R09.89 rspiratory symptoms; , TECHNIQUE: XR chest 2V views of the chest. FINDINGS: The lungs are clear and there is no pneumothorax, pleural effusion, or focal pneumonia. Heart size normal and no overt failure. Osseous structures demonstrate hypertrophic and degenerative changes of the spine. Median sternotomy changes. Prior aortic valve replacement surgery. Biapical pleural thicke kelsy. IMPRESSION: 1. No acute process. [facility], , 06/22/2024 9:09 AM
== END | disposition home or self-care (01) ==
LOC: RADXRMAIN 08:53
PROVIDERS: ATTEND Family Medicine
DX: R09.89 Other specified symptoms and signs involving the circulatory and respiratory systems (principal)
CPT/HCPCS: 71046

== ENCOUNTER 2024-09-22 08:32 | Day surgery (SDC) | payer MEDICARE, OTHER ==
[2024-09-22] MEDS ORDERED: SODIUM CHLORIDE 0.9% 500 ML IV SCH (09:00)
[2024-09-22] MEDS: IV FLUID CONTINUATION 1,000 ML IV ONE ×2 (09:15→09:46)
[2024-09-22 09:27] VITALS: TEMP 97.1
[2024-09-22 09:45] LABS: African American GFR (CKD) 55 (>60 ml/min/1.73 sqM); Anion Gap 8 mmol/L; Blood Urea Nitrogen 21 mg/dL (9-20); Calcium 9.1 mg/dL (8.4-10.2); Carbon Dioxide 26 mmol/L (22-30); Chloride 107 mmol/L (98-107); Glucose 102 mg/dL (74-99); Non-African American GFR(CKD) 48 (>60 ml/min/1.73 sqM); Potassium 4.4 mmol/L (3.5-5.1); Sodium 141 mmol/L (137-145)
[2024-09-22] MEDS: BENZOCAINE SPRAY 1 EACH MUCOUS MEM STA (10:02)
[2024-09-22] MEDS ORDERED: LIDOCAINE 1% INJ 10MG/ML (20 ML MDV) ONE (10:03)
[2024-09-22] MEDS ORDERED: PROPOFOL 10 MG/ML 20 ML VIAL IV ONE (10:03)
[2024-09-22 10:04] LABS: INR 2.9 (<1.2); Prothrombin Time 29.2 sec (10.0-12.5)
[2024-09-22 10:28] VITALS: RESP 16
[2024-09-22 11:09] VITALS: BP 113/86; PULSE 62
--- NOTE | 2024-09-22 11:15 | ECHOT ---
TRANSESOPHAGEAL ECHOCARDIOGRAM INDICATION: Persistent atrial fibrillation to rule out intracardiac thrombus. PROCEDURE NOTE: After obtaining informed consent, transesophageal echocardiogram was performed in left lateral position using an Omniplane probe. Local and IV sedation were obtained by the proteomics scientist. The patient tolerated the procedure well without any obvious immediate complications. FINDINGS: 1. There is no intracardiac thrombus within the left atrial appendage, left atrium, right atrium, right ventricle, or left ventricle. 2. Left ventricle has normal size and systolic function with an ejection fraction of 50%. 3. There is severe biatrial enlargement. 4. Right ventricle appears mildly enlarged. 5. There is a bioprosthetic valve in aortic position that is functioning normally without any evidence of stenosis or regurgitation. Ascending aorta measures 3.5 cm. 6. Tricuspid valve shows mild tricuspid regurgitation. Mitral valve shows moderate central mitral regurgitation. CONCLUSIONS: No intracardiac thrombus. PLAN: We will proceed with cardioversion. MMODL / IJN: [id number] /
--- NOTE | 2024-09-22 12:36 | PCN ---
PROCEDURE NOTE PROCEDURE PERFORMED: Cardioversion. INDICATION: Persistent atrial fibrillation. PROCEDURE NOTE: After obtaining informed consent, the patient underwent electrical cardioversion following the single 150 joules of synchronized direct current, converted to sinus rhythm. Intracardiac thrombus was ruled out with a CAROL, and the patient is adequately anticoagulated with an INR of 2.9. He is going to continue the Multaq, Coumadin, and Toprol that he is on, and will follow up with me over the next 4 weeks. LOWELL / CALEN: [id number] /
== END 2024-09-22 11:27 | disposition home or self-care (01) ==
LOC: OR 08:32
PROVIDERS: ATTEND Internal Medicine Cardiovascular Disease
DX: I48.0 Paroxysmal atrial fibrillation (principal); I34.0 Nonrheumatic mitral (valve) insufficiency; I10 Essential (primary) hypertension; E78.5 Hyperlipidemia, unspecified; F17.210 Nicotine dependence, cigarettes, uncomplicated; M19.90 Unspecified osteoarthritis, unspecified site; Z86.79 Personal history of other diseases of the circulatory system; Z95.2 Presence of prosthetic heart valve; Z79.82 Long term (current) use of aspirin; Z79.899 Other long term (current) drug therapy
CPT/HCPCS: 93312; 93320; 93325; 92960; 80048; 85610; J2003; J2704